=== PATIENT | male | born 1955 | race Caucasian/White ===

== ENCOUNTER 2020-10-01 07:32 | Outpatient (REF) | payer MEDICARE, SELFPAY ==
[2020-10-01 14:23] LABS: Alanine Aminotransferase 28 U/L (0-40); Albumin Level 3.9 g/dL (3.5-5.0); Alkaline Phosphatase 59 U/L (39-117); Anion Gap 13 (12-20); Aspartate Amino Transferase 27 U/L (5-37); Bilirubin Total 0.9 mg/dL (0.0-1.0); Blood Urea Nitrogen 29 mg/dL (9-16); Calcium 9.3 mg/dL (8.4-10.2); Carbon Dioxide 28 mmol/L (22-29); Chloride 105 mmol/L (96-108); Cholesterol 182 mg/dL; Estimated Glomerular Filt Rate > 60; Glucose Fasting 97 mg/dL (60-99); HDL Cholesterol 65 mg/dL; LDL Cholesterol Calculated 106 mg/dl; Potassium 4.6 mmol/L (3.3-5.1); Sodium 141 mmol/L (135-145); Total Protein 6.6 g/dL (6.5-8.0); Triglycerides 58 mg/dL
[2020-10-01 14:47] LABS: Ferritin 148 ng/mL (20-250); TSH reflex Free T4 1.58 uIU/mL (0.32-4.0)
== END 2020-10-01 07:33 | disposition home or self-care (01) ==
LOC: HO.HMGCLDS 07:32
PROVIDERS: PCP Internal Medicine; Visit Provider Internal Medicine
DX: E61.1 Iron deficiency (principal); I10 Essential (primary) hypertension; Z76.89 Persons encountering health services in other specified circumstances
CPT/HCPCS: 36415; 80053; 80061; 82728; 84443

== ENCOUNTER 2021-02-16 07:22 | Outpatient (REF) | payer MEDICARE, SELFPAY ==
[2021-02-16 11:15] LABS: MANUAL DIFF FLAG NO
[2021-02-16 11:25] LABS: Basophils Percent Auto 0.6 % (0-2); Eosinophils Absolute Auto 0.3 X10*3/uL (0.0-0.4); Eosinophils Percent Auto 5.5 % (0-4); Hematocrit 38.8 % (42-52); Hemoglobin 13.4 g/dl (14.0-18.0); Imm Gran Abs Auto 0.01 X10*3/uL (0.00-0.03); Imm Gran Pct Auto 0.2 % (0.0-0.4); Lymphocytes Absolute Auto 1.2 X10*3/uL (1.2-4.9); Lymphocytes Percent Auto 24.4 % (20-40); Mean Corpuscular HGB Conc 34.5 g/dl (31.0-36.0); Mean Corpuscular Hemoglobin 32.3 pg (27.0-33.0); Mean Corpuscular Volume 93.5 fL (80-98); Monocytes Absolute Auto 0.6 X10*3/uL (0.1-1.2); Monocytes Percent Auto 12.1 % (2-11); Neutrophils Absolute Auto 2.8 X10*3/uL (2.0-8.3); Neutrophils Percent Auto 57.2 % (45-73); Platelet Count 199 X10*3/uL (160-400); Red Blood Count 4.15 X10*6/uL (4.60-5.80); Red Cell Distribution Width 12.2 % (11.0-16.0); White Blood Count 4.9 X10*3/uL (4.8-10.8)
[2021-02-16 11:39] LABS: Alanine Aminotransferase 24 U/L (0-40); Albumin Level 4.1 g/dL (3.5-5.0); Alkaline Phosphatase 61 U/L (39-117); Anion Gap 11 (12-20); Aspartate Amino Transferase 28 U/L (5-37); Bilirubin Total 1.6 mg/dL (0.0-1.0); Blood Urea Nitrogen 24 mg/dL (9-16); Calcium 9.4 mg/dL (8.4-10.2); Carbon Dioxide 25 mmol/L (22-29); Chloride 108 mmol/L (96-108); Estimated Glomerular Filt Rate > 60; Glucose Random 80 mg/dL (60-115); Potassium 3.6 mmol/L (3.3-5.1); Sodium 140 mmol/L (135-145); Total Protein 6.7 g/dL (6.5-8.0)
[2021-02-16 12:06] LABS: Ferritin 255 ng/mL (20-250)
== END 2021-02-16 07:23 | disposition home or self-care (01) ==
LOC: HO.HMGCLDS 07:22
PROVIDERS: PCP Internal Medicine; Visit Provider Internal Medicine
DX: I10 Essential (primary) hypertension (principal)
CPT/HCPCS: 36415; 80053; 82728; 85025

== ENCOUNTER 2021-03-14 07:05 | Outpatient (REF) | payer MEDICARE, SELFPAY ==
[2021-03-14 11:48] LABS: MANUAL DIFF FLAG NO
[2021-03-14 11:50] LABS: Basophils Absolute Auto 0.1 X10*3/uL (0.0-0.2); Basophils Percent Auto 0.8 % (0-2); Eosinophils Absolute Auto 0.3 X10*3/uL (0.0-0.4); Eosinophils Percent Auto 5.3 % (0-4); Hematocrit 37.7 % (42.0-52.0); Hemoglobin 12.5 g/dl (14.0-18.0); Imm Gran Abs Auto 0.01 X10*3/uL (0.00-0.03); Imm Gran Pct Auto 0.2 % (0.0-0.4); Lymphocytes Percent Auto 15.5 % (20-40); Mean Corpuscular HGB Conc 33.2 g/dl (31.0-36.0); Mean Corpuscular Hemoglobin 32.4 pg (27.0-33.0); Mean Corpuscular Volume 97.7 fL (80.0-98.0); Mean Platelet Volume 10.1 fL (9.4-12.4); Monocytes Absolute Auto 0.7 X10*3/uL (0.1-1.2); Neutrophils Absolute Auto 4.2 x10*3/uL (2.0-8.3); Neutrophils Percent Auto 67.2 % (45-73); Platelet Count 214 X10*3/uL (160-400); Red Blood Count 3.86 X10*6/uL (4.60-5.80); Red Cell Distribution Width 12.9 % (11.0-16.0); White Blood Count 6.2 X10*3/uL (4.8-10.8)
[2021-03-14 12:15] LABS: Alanine Aminotransferase 31 U/L (0-40); Albumin Level 3.8 g/dL (3.5-5.0); Alkaline Phosphatase 59 U/L (39-117); Anion Gap 10 (12-20); Aspartate Amino Transferase 25 U/L (5-37); Bilirubin Direct 0.3 mg/dL (0.0-0.5); Bilirubin Total 0.7 mg/dL (0.0-1.0); Blood Urea Nitrogen 27 mg/dL (9-16); Carbon Dioxide 27 mmol/L (22-29); Chloride 106 mmol/L (96-108); Estimated Glomerular Filt Rate > 60; Glucose Random 94 mg/dL (60-115); Potassium 3.9 mmol/L (3.3-5.1); Sodium 139 mmol/L (135-145); Total Protein 6.4 g/dL (6.5-8.0)
[2021-03-14 12:35] LABS: Ferritin 106 ng/mL (20-250)
== END 2021-03-14 07:06 | disposition home or self-care (01) ==
LOC: HO.HMGCLDS 07:05
PROVIDERS: PCP Internal Medicine; Visit Provider Internal Medicine
DX: E61.1 Iron deficiency (principal); I10 Essential (primary) hypertension; R79.89 Other specified abnormal findings of blood chemistry
CPT/HCPCS: 36415; 80053; 82248; 82728; 85025

== ENCOUNTER 2021-03-18 15:18 | Outpatient (REF) | payer MEDICARE, SELFPAY | END 2021-03-18 15:19 | disposition home or self-care (01) | LOC: HO.LNP 15:18 | PROVIDERS: Visit Provider Physician Assistant Medical | DX: R35.89 Other polyuria (principal) | CPT/HCPCS: 87086 ==

== ENCOUNTER 2021-03-20 07:53 | Outpatient (REF) | payer MEDICARE, SELFPAY ==
[2021-03-20 11:45] LABS: Alanine Aminotransferase 26 U/L (0-40); Albumin Level 3.8 g/dL (3.5-5.0); Alkaline Phosphatase 65 U/L (39-117); Anion Gap 10 (12-20); Aspartate Amino Transferase 22 U/L (5-37); Bilirubin Total 0.7 mg/dL (0.0-1.0); Blood Urea Nitrogen 24 mg/dL (9-16); Calcium 8.8 mg/dL (8.4-10.2); Carbon Dioxide 25 mmol/L (22-29); Chloride 108 mmol/L (96-108); Estimated Glomerular Filt Rate > 60; Glucose Fasting 95 mg/dL (60-99); Potassium 4.1 mmol/L (3.3-5.1); Sodium 139 mmol/L (135-145); Total Protein 6.4 g/dL (6.5-8.0)
[2021-03-20 12:06] LABS: Ferritin 87 ng/mL (20-250)
[2021-03-20 12:09] LABS: Prostate Specific Antigen 0.37 ng/mL (<0.05-4.0)
== END 2021-03-20 07:54 | disposition home or self-care (01) ==
LOC: HO.HMGCLDS 07:53
PROVIDERS: PCP Internal Medicine; Visit Provider Physician Assistant Medical
DX: R79.89 Other specified abnormal findings of blood chemistry (principal); R35.89 Other polyuria
CPT/HCPCS: 36415; 80053; 82728; 84153

== ENCOUNTER 2021-07-11 10:50 | Outpatient (REF) | payer MEDICARE, SELFPAY ==
[2021-07-11 13:58] LABS: MANUAL DIFF FLAG NO
[2021-07-11 14:01] LABS: Basophils Percent Auto 0.6 % (0-2); Eosinophils Absolute Auto 0.1 X10*3/uL (0.0-0.4); Eosinophils Percent Auto 1.8 % (0-4); Hematocrit 39.1 % (42.0-52.0); Hemoglobin 12.7 g/dl (14.0-18.0); Imm Gran Abs Auto 0.02 X10*3/uL (0.00-0.03); Imm Gran Pct Auto 0.4 % (0.0-0.4); Lymphocytes Absolute Auto 1.2 X10*3/uL (1.2-4.9); Lymphocytes Percent Auto 22.6 % (20-40); Mean Corpuscular HGB Conc 32.5 g/dl (31.0-36.0); Mean Corpuscular Hemoglobin 31.9 pg (27.0-33.0); Mean Corpuscular Volume 98.2 fL (80.0-98.0); Mean Platelet Volume 11.1 fL (9.4-12.4); Monocytes Absolute Auto 0.4 X10*3/uL (0.1-1.2); Monocytes Percent Auto 8.1 % (2-11); Neutrophils Absolute Auto 3.6 x10*3/uL (2.0-8.3); Neutrophils Percent Auto 66.5 % (45-73); Platelet Count 172 X10*3/uL (160-400); Red Blood Count 3.98 X10*6/uL (4.60-5.80); Red Cell Distribution Width 13.1 % (11.0-16.0); White Blood Count 5.4 X10*3/uL (4.8-10.8)
[2021-07-11 14:13] LABS: Alanine Aminotransferase 19 U/L (0-40); Alkaline Phosphatase 54 U/L (39-117); Anion Gap 11 (12-20); Aspartate Amino Transferase 21 U/L (5-37); Blood Urea Nitrogen 25 mg/dL (9-16); Calcium 9.2 mg/dL (8.4-10.2); Carbon Dioxide 25 mmol/L (22-29); Chloride 108 mmol/L (96-108); Estimated Glomerular Filt Rate > 60; Glucose Random 91 mg/dL (60-115); Potassium 4.2 mmol/L (3.3-5.1); Sodium 140 mmol/L (135-145); Total Protein 6.8 g/dL (6.5-8.0)
[2021-07-11 14:34] LABS: Ferritin 128 ng/mL (20-250)
[2021-07-11 14:36] LABS: Appearance Urine CLEAR; Color Urine YELLOW; Glucose Urine UA NEG (NEG); Leukocyte Esterase Urine NEG (NEG); Nitrite Urine NEG (NEG); PH 5.5 (5.0-8.0); Specific Gravity - Urine 1.025 (1.005-1.025); UACC Culture Trigger NO; Urine Blood 2+ (NEG); Urine Ketones NEG (NEG); Urine Protein 1+ MG/DL (NEG-TRACE)
[2021-07-11 14:56] LABS: WBC Urine 0-2 /HPF (0-4)
== END 2021-07-11 10:51 | disposition home or self-care (01) ==
LOC: HO.HMGCLDS 10:50
PROVIDERS: Visit Provider Internal Medicine
DX: I10 Essential (primary) hypertension (principal); M25.473 Effusion, unspecified ankle; R35.89 Other polyuria; D64.9 Anemia, unspecified
CPT/HCPCS: 36415; 80053; 81001; 81003; 82728; 85025

== ENCOUNTER 2022-01-13 12:13 | Outpatient (REF) | payer MEDICARE, SELFPAY ==
[2022-01-13 12:39] LABS: Binax Internal Control QC Valid; Binax Now Covid-19 Ag Negative (Negative)
== END 2022-01-13 12:14 | disposition home or self-care (01) ==
LOC: HO.HMGCLDS 12:13
PROVIDERS: Visit Provider Physician Assistant Medical
DX: Z20.822 Contact with and (suspected) exposure to COVID-19 (principal)
CPT/HCPCS: 87811; C9803

== ENCOUNTER 2022-05-18 10:44 | Outpatient (REF) | payer MEDICARE, SELFPAY ==
[2022-05-18 14:15] LABS: MANUAL DIFF FLAG NO
[2022-05-18 14:25] LABS: Basophils Absolute Auto 0.1 X10*3/uL (0.0-0.2); Basophils Percent Auto 1.1 % (0-2); Eosinophils Absolute Auto 0.2 X10*3/uL (0.0-0.4); Eosinophils Percent Auto 4.2 % (0-4); Hematocrit 38.2 % (42.0-52.0); Hemoglobin 12.8 g/dl (14.0-18.0); Imm Gran Abs Auto 0.01 X10*3/uL (0.00-0.03); Imm Gran Pct Auto 0.2 % (0.0-0.4); Lymphocytes Absolute Auto 0.9 X10*3/uL (1.2-4.9); Lymphocytes Percent Auto 19.6 % (20-40); Mean Corpuscular HGB Conc 33.5 g/dl (31.0-36.0); Mean Corpuscular Hemoglobin 32.2 pg (27.0-33.0); Mean Corpuscular Volume 96.2 fL (80.0-98.0); Mean Platelet Volume 10.4 fL (9.4-12.4); Monocytes Absolute Auto 0.7 X10*3/uL (0.1-1.2); Monocytes Percent Auto 14.7 % (2-11); Neutrophils Absolute Auto 2.7 x10*3/uL (2.0-8.3); Neutrophils Percent Auto 60.2 % (45-73); Platelet Count 211 X10*3/uL (160-400); Red Blood Count 3.97 X10*6/uL (4.60-5.80); Red Cell Distribution Width 12.6 % (11.0-16.0); White Blood Count 4.5 X10*3/uL (4.8-10.8)
[2022-05-18 14:44] LABS: Alanine Aminotransferase 28 U/L (0-40); Alkaline Phosphatase 44 U/L (39-117); Anion Gap 12 (12-20); Aspartate Amino Transferase 31 U/L (5-37); Bilirubin Total 1.4 mg/dL (0.0-1.0); Blood Urea Nitrogen 26 mg/dL (9-16); Calcium 9.3 mg/dL (8.4-10.2); Carbon Dioxide 24 mmol/L (22-29); Chloride 106 mmol/L (96-108); Estimated Glomerular Filt Rate > 60; Glucose Random 83 mg/dL (60-115); Potassium 4.1 mmol/L (3.3-5.1); Sodium 138 mmol/L (135-145); Total Protein 6.6 g/dL (6.5-8.0)
[2022-05-18 14:59] LABS: Ferritin 205 ng/mL (20-250); TSH reflex Free T4 2.36 uIU/mL (0.32-4.0)
[2022-05-19 08:43] LABS: LDL Cholesterol Direct 105 mg/dL (<100)
== END 2022-05-18 10:45 | disposition home or self-care (01) ==
LOC: HO.HMGCLDS 10:44
PROVIDERS: PCP Internal Medicine; Visit Provider Internal Medicine
DX: I10 Essential (primary) hypertension (principal); J30.9 Allergic rhinitis, unspecified; E61.1 Iron deficiency
CPT/HCPCS: 36415; 80053; 82728; 83721; 84443; 85025

== ENCOUNTER → 2022-10-02 09:59 | Outpatient (BNVA) | payer MEDICARE, SELFPAY | PROVIDERS: PCP Internal Medicine; Visit Provider Nurse Practitioner Family | DX: G47.33 Obstructive sleep apnea (adult) (pediatric) (principal); G47.9 Sleep disorder, unspecified; Z99.89 Dependence on other enabling machines and devices | CPT/HCPCS: 99202 ==

== ENCOUNTER → 2022-11-14 11:13 | Outpatient (REF) | payer MEDICARE, SELFPAY | LOC: HO.SL 11:13 | PROVIDERS: Visit Provider Nurse Practitioner Family | DX: G47.30 Sleep apnea, unspecified (principal) | CPT/HCPCS: 95806 ==

== ENCOUNTER → 2022-11-14 11:36 | Outpatient (BNV) | payer MEDICARE, SELFPAY | PROVIDERS: Visit Provider Psychiatry & Neurology Neurology | DX: G47.33 Obstructive sleep apnea (adult) (pediatric) (principal) | CPT/HCPCS: 95806 ==

== ENCOUNTER 2022-11-20 15:24 | Outpatient (AMB) | payer MEDICARE, SELFPAY ==
[2022-11-20 15:33] VITALS: BP 120/60; PULSE 62; O2SAT 95; BMI 30.1
--- NOTE | 2022-11-20 15:33 | MHC.PC.OV ---
Vital Signs 11/20/22 15:33 Height 5 ft 7 in Weight 192 lb 4 oz BMI 30.1 BP 120/60 Blood Pressure Location Lt brachial Position Sitting Pulse 62 Pulse Source Pulse Oximeter Pulse Oximetry (%) 95 Oxygen Delivery Method Room Air Intake Visit Reasons: Pre op~ 4 month follow up HTN Allergies lithium [LITHIUM] Allergy (Unknown, Verified 11/20/22 15:36) UNKNOWN chlorpromazine [From THORAZINE] Adverse Reaction (Severe, Verified 11/20/22 15:36) PARALYSIS Medication List - Last Reconciled 11/20/22 by Dorothy Phillips MD atenolol 25 mg PO DAILY 90 days fluticasone propionate 50 mcg/actuation 1 spray intranasal DAILY 30 days Tobacco use date assessed: 11/20/22 Fall risk assessment: No Falls in past year Last assessed Fall Risk: 11/20/22 Dental Screening Dental Screen Date: 11/20/22 Did you have a dental visit in the last 12 months?: No Did you have a dental problem in the last 6 months where you did not have access to dental care?: No Was dental information given to patient?: No HPI Pre op~ 4 month follow up HTN HPI Details Patient came in today preop evaluation for cataract surgery right [facility] He is due for labs order placed EKG shows sinus ready at 49 beats per minute, right bundle branch block and possible septal infarct He has never seen student development specialist before He is asymptomatic there is no shortness of breath no chest pain however patient need to be evaluated by Cardiology. Since this is an elective procedure it will be reasonable to postpone it until he is seen by the Cardiology. [facility] Medical History Hypertension Surgical History H/O colonoscopy History of hernia surgery Family History Other Mental health disorder Substance use disorder Social History Housing: Apartment Alcohol intake: current Alcohol intake frequency: holidays/special occasions only Patient Tobacco Use Status: Former Tobacco user Tobacco use type: Cigarette e-Cigarette/Vaping Use: Never Used service: No Current occupational status: unemployed Cognitive needs: No Hearing needs: No Vision needs: Yes Questionnaire PHQ-9 Over the last 2 weeks, how often have you been bothered by any of the following problems? 1. Little interest or pleasure in doing things: not at all 2. Feeling down, depressed, or hopeless: not at all 3. Trouble falling or staying asleep, or sleeping too much: not at all 4. Feeling tired or having little energy: not at all 5. Poor appetite or overeating: not at all 6. Feeling bad about yourself - or that you are a failure or have let yourself or your family down: not at all 7. Trouble concentrating on things, such as reading the newspaper or watching television: not at all 9. Thoughts that you would be better off or of hurting yourself in some way: not at all Depression Screening Interpretation: Negative Source: Developed by Drs. Duc Zepeda, Nina Oakley, Deandre Brooks and colleagues, with an educational daryl from [employer]. Thrive Questionnaire Date Thrive assessed: 04/07/21 PERI-7 AMB Questionnaire PERI-7 Date PERI - 7 assessed: 11/21/21 Feeling nervous, anxious, or on edge: 0 = Not at all Not being able to stop or control worryin = Not at all Worrying too much about different things: 0 = Not at all Trouble relaxin = Not at all Being so restless that it is hard to sit still: 0 = Not at all Becoming easily annoyed or irritable: 0 = Not at all Feeling afraid as if something awful might happen: 0 = Not at all Total PERI-7 score (0-4 normal; 5-9 mild; 10-14 moderate; 15-21 severe): 0 Source: Developed by Drs. Duc Zepeda, Nina Oakley, Deandre Brooks and colleagues, with an educational daryl from [employer]. PERI-7 Assessment Billing PERI-7 Assessment Tool: PERI-7 Assessment 10430 Review of Systems Const Denies chills and Denies fever(s) ENT Denies epistaxis and Denies nasal discharge Card Denies chest pain Resp Denies chest congestion, Denies cough and Denies hemoptysis GI Denies diarrhea and Denies nausea Skin/Breast Denies rash Neuro Reports no additional complaints Psych Reports no additional complaints Endo Reports no additional complaints Physical exam (Primary Care) Vital Signs: Last Vital Signs Pulse 62 11/20/22 15:33 BP 120/60 11/20/22 15:33 Pulse Ox 95 11/20/22 15:33 Oxygen Delivery Method Room Air 11/20/22 15:33 BMI result Body Mass Index 30.1 Tobacco/Smoking Status: Tobacco use Status Tobacco use date assessed 11/20/22 11/20/22 15:39 Patient Tobacco Use Status Former Tobacco user 11/20/22 15:35 Tobacco use type Cigarette 11/20/22 15:35 e-Cigarette/Vaping Use Never Used 11/20/22 15:35 Depression Screening Interpretation: Negative Thrive Assessment: Date of Thrive Assessment Date Thrive assessed 04/07/21 11/20/22 15:35 Const General: cooperative, comfortable and no acute distress Orientation/consciousness: patient oriented x3 HENMT Head: Yes normocephalic Eyes General: appearance normal, both eyes and all related structures Neck Neck: Yes supple Resp Effort & Inspection: normal respiratory effort, no cough and no stridor Cardio Other: Rhythm: regular rhythm Heart sounds: S1 normal heart sound present and S2 normal heart sound present Skin General skin exam: turgor normal Neuro General: patient oriented x3, tone normal and moves all extremities Extrem Right lower extremity: no edema Left lower extremity: no edema Office Procedures EKG [id number]-[id number], Complete Assessment and Plan Assessment & Plan (1) Abnormal EKG: Code(s): R94.31 - Abnormal electrocardiogram [ECG] [EKG] (2) Pre-op evaluation: Code(s): Z01.818 - Encounter for other preprocedural examination (3) Hypertension, essential: Code(s): I10 - Essential (primary) hypertension (4) Iron deficiency: Code(s): E61.1 - Iron deficiency Plan Patient came in today preop evaluation for cataract surgery right eye [facility] of [facility] He is due for labs order placed EKG shows sinus ready at 49 beats per minute, right bundle branch block and possible septal infarct He has never seen student development specialist before He is asymptomatic there is no shortness of breath no chest pain however patient need to be evaluated by Cardiology. Since this is an elective procedure it will be reasonable to postpone it until he is seen by the Cardiology. Orders: Orders Comprehensive [place]. Panel Fast Today E61.1 - Iron deficiency, I10 - Essential (primary) hypertension, R94.31 - Abnormal electrocardiogram [ECG] [EKG], Z01.818 - Encounter for other preprocedural examination Lipid Panel Today E61.1 - Iron deficiency, I10 - Essential (primary) hypertension, R94.31 - Abnormal electrocardiogram [ECG] [EKG], Z01.818 - Encounter for other preprocedural examination Complete Blood Count Auto Diff Today E61.1 - Iron deficiency, I10 - Essential (primary) hypertension, R94.31 - Abnormal electrocardiogram [ECG] [EKG], Z01.818 - Encounter for other preprocedural examination Ferritin Today E61.1 - Iron deficiency AMB EKG-In Office Today Z13.6 - Encounter for screening for cardiovascular disorders Referrals Cardiology Referral R94.31 - Abnormal electrocardiogram [ECG] [EKG], Z01.818 - Encounter for other preprocedural examination Coding Level of Care Code Est Pt Level 4 (80834) Diagnoses Abnormal EKG R94.31 Pre-op evaluation Z01.818 Hypertension, essential I10 Iron deficiency E61.1 CPT Codes EKG - CPT: 96039-[id number], Complete ([id number]) Additional Codes PERI-7 Assessment Billing - PERI-7 Assessment Tool: PERI-7 Assessment 30502 ([id number])
== END 2022-11-21 09:12 | disposition home or self-care (01) ==
LOC: HO.HMGC 15:24
PROVIDERS: PCP Internal Medicine; Visit Provider Internal Medicine
DX: R94.31 Abnormal electrocardiogram [ECG] [EKG] (principal); Z01.818 Encounter for other preprocedural examination; I10 Essential (primary) hypertension; E61.1 Iron deficiency
CPT/HCPCS: 93000; 99214

== ENCOUNTER 2022-11-21 07:22 | Outpatient (REF) | payer MEDICARE, SELFPAY ==
[2022-11-21 11:10] LABS: MANUAL DIFF FLAG NO
[2022-11-21 11:37] LABS: Basophils Absolute Auto 0.1 X10*3/uL (0.0-0.2); Basophils Percent Auto 1.1 % (0-2); Eosinophils Absolute Auto 0.2 X10*3/uL (0.0-0.4); Eosinophils Percent Auto 4.1 % (0-4); Hematocrit 40.7 % (42.0-52.0); Hemoglobin 13.3 g/dl (14.0-18.0); Imm Gran Abs Auto 0.01 X10*3/uL (0.00-0.03); Imm Gran Pct Auto 0.2 % (0.0-0.4); Lymphocytes Percent Auto 21.5 % (20-40); Mean Corpuscular HGB Conc 32.7 g/dl (31.0-36.0); Mean Corpuscular Hemoglobin 32.4 pg (27.0-33.0); Mean Platelet Volume 10.8 fL (9.4-12.4); Monocytes Absolute Auto 0.5 X10*3/uL (0.1-1.2); Monocytes Percent Auto 11.4 % (2-11); Neutrophils Absolute Auto 2.9 x10*3/uL (2.0-8.3); Neutrophils Percent Auto 61.7 % (45-73); Platelet Count 174 X10*3/uL (160-400); Red Blood Count 4.11 X10*6/uL (4.60-5.80); Red Cell Distribution Width 12.6 % (11.0-16.0); White Blood Count 4.7 X10*3/uL (4.8-10.8)
[2022-11-21 12:08] LABS: Alanine Aminotransferase 19 U/L (0-40); Albumin Level 3.9 g/dL (3.5-5.0); Alkaline Phosphatase 49 U/L (39-117); Anion Gap 8 (12-20); Aspartate Amino Transferase 18 U/L (5-37); Bilirubin Total 1.1 mg/dL (0.0-1.0); Blood Urea Nitrogen 37 mg/dL (9-16); Calcium 9.3 mg/dL (8.4-10.2); Carbon Dioxide 28 mmol/L (22-29); Chloride 107 mmol/L (96-108); Cholesterol 178 mg/dL; Estimated Glomerular Filt Rate 57; Glucose Fasting 96 mg/dL (60-99); HDL Cholesterol 51 mg/dL; LDL Cholesterol Calculated 115 mg/dl; Sodium 139 mmol/L (135-145); Total Protein 6.8 g/dL (6.5-8.0); Triglycerides 61 mg/dL
[2022-11-21 12:19] LABS: Ferritin 135 ng/mL (20-250)
[2022-11-23 03:53] LABS: LDL Cholesterol Direct 114 mg/dL (<100)
== END 2022-11-21 07:23 | disposition home or self-care (01) ==
LOC: HO.HMGCLDS 07:22
PROVIDERS: PCP Internal Medicine; Visit Provider Internal Medicine
DX: Z01.818 Encounter for other preprocedural examination (principal); E61.1 Iron deficiency; I10 Essential (primary) hypertension; R94.31 Abnormal electrocardiogram [ECG] [EKG]
CPT/HCPCS: 36415; 80053; 80061; 82728; 83721; 85025

== ENCOUNTER 2022-12-05 15:42 | Outpatient (AMB) | payer MEDICARE, SELFPAY ==
--- NOTE | 2022-12-05 15:54 | MHC.OFFVIS ---
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 Intake Note: New patient visit with EKG for evaluation of abnormal EKG and preop prior to cataract surgery. Er Registrar Required: No Accompanied by: Self / Same As Patient Allergies lithium [LITHIUM] Allergy (Unknown, Verified 12/05/22 15:57) UNKNOWN chlorpromazine [From THORAZINE] Adverse Reaction (Severe, Verified 12/05/22 15:57) PARALYSIS Medication List - Last Reconciled 12/05/22 by Rex Andrade MD atenolol 25 mg PO DAILY 90 days fluticasone propionate 50 mcg/actuation 1 spray intranasal DAILY 30 days HPI HPI Comments History of Present Illness Details 67-year-old gentleman with manic depressive disorder and hypertension on atenolol 25 mg daily presenting for perioperative cardiovascular risk assessment. He needs cataract surgery. He is unsure whether he is getting surgery or not. His denying any symptoms though in particular no chest pain or shortness of breath. Blood pressure control is good. He is somewhat bradycardic with heart rate of 49 with right bundle-branch block. He has no dizziness or lightheadedness. [facility] Medical History Hypertension Surgical History H/O colonoscopy History of hernia surgery Family History Other Mental health disorder Substance use disorder Social History Housing: Apartment Alcohol intake: current Alcohol intake frequency: holidays/special occasions only Patient Tobacco Use Status: Former Tobacco user Tobacco use type: Cigarette e-Cigarette/Vaping Use: Never Used service: No Current occupational status: unemployed Cognitive needs: No Hearing needs: No Vision needs: Yes Review of Systems Const Denies chills, Denies daytime sleepiness, Denies fatigue, Denies fever(s), Denies frequent falls, Denies night sweats, Denies snoring, Denies weakness, Denies weight gain and Denies weight loss Eyes Denies loss of vision ENT Denies dizziness and Denies hearing loss Card Denies chest pain, Denies chest pain with activity, Denies syncope, Denies rapid heart rate, Denies edema, Denies claudication, Denies leg edema, Denies lightheadedness, Denies palpitations, Denies dyspnea, Denies dyspnea on exertion and Denies orthopnea Resp Denies cough, Denies excessive phlegm production, Denies dyspnea, Denies dyspnea on exertion, Denies snoring and Denies wheezing GI Denies abdominal pain, Denies hematochezia, Denies change in bowel habits, Denies change in stool character, Denies heartburn, Denies nausea and Denies vomiting Denies hematuria, Denies dysuria and Denies urinary frequency Musc Denies arthralgias, Denies muscle weakness, Denies numbness and Denies tingling Skin/Breast Denies nail changes and Denies rash Neuro Denies Abnormal speech present, Denies dizziness, Denies syncope, Denies frequent falls, Denies loss of vision, Denies memory loss, Denies numbness, Denies tingling and Denies weakness Psych Denies depression and Denies memory loss Endo Denies fatigue and Denies palpitations Aller/Immun Denies wheezing Physical Exam Vital Signs: Last Vital Signs Pulse 49 L 12/05/22 15:55 BP 104/78 12/05/22 15:55 BMI result Body Mass Index 29.5 GENERAL APPEARANCE: in no acute distress. NECK: no carotid bruit, no jugular venous distention. SKIN: no suspicious lesions, warm and dry. HEART: no murmurs, regular rate and rhythm. Bradycardic LUNGS: clear to auscultation bilaterally. ABDOMEN: soft, nontender. EXTREMITIES: no edema. PERIPHERAL PULSES: equal. NEUROLOGIC: No gross deficits, AAO X 3 Neuro Speech: No Abnormal speech present Office Procedures EKG Details: Sinus bradycardia, right bundle branch block, QTC 419 milliseconds. [id number], Complete Assessment & Plan Assessment & Plan (1) Pre-op evaluation: Code(s): Z01.818 - Encounter for other preprocedural examination (2) Abnormal EKG: Code(s): R94.31 - Abnormal electrocardiogram [ECG] [EKG] Plan 67-year-old gentleman who is here for perioperative cardiovascular risk assessment for cataract surgery. Cataract surgery is a low risk surgery and he can proceed with surgery. He has right bundle-branch block on his EKG with sinus bradycardia. He is taking atenolol off and on. He is saying he took it today. His heart rate in the office is 50 beats per minute. He is denying any dizziness or lightheadedness. If he is symptomatic in the future then potentially stopping atenolol is a possibility. He should hold the atenolol on the day of surgery. Otherwise he can see us as needed. He is quite unstable from manic-depressive point of view and would benefit from seeing Psychiatry. Thank you for allowing me to participate in the care of your patient. Please feel free to contact me if you have any questions. Coding Level of Care Code New Pt Level 4 (21629) Diagnoses Pre-op evaluation Z01.818 Abnormal EKG R94.31 CPT Codes EKG - CPT: 47017-[id number], Complete ([id number])
[2022-12-05 15:55] VITALS: BP 104/78; PULSE 49; BMI 29.5
== END 2022-12-05 16:18 | disposition home or self-care (01) ==
PROVIDERS: PCP Internal Medicine; Referring Provider Internal Medicine; Visit Provider Internal Medicine Cardiovascular Disease
DX: Z01.818 Encounter for other preprocedural examination (principal); R94.31 Abnormal electrocardiogram [ECG] [EKG]
CPT/HCPCS: 93010; 99204

== ENCOUNTER → 2022-12-05 15:42 | Outpatient (BNVA) | payer MEDICARE, SELFPAY | PROVIDERS: PCP Internal Medicine; Referring Provider Internal Medicine; Visit Provider Internal Medicine Cardiovascular Disease | DX: Z01.818 Encounter for other preprocedural examination (principal); H26.9 Unspecified cataract; R94.31 Abnormal electrocardiogram [ECG] [EKG] | CPT/HCPCS: 93005; 99202 ==

== ENCOUNTER 2023-05-11 07:31 | Outpatient (REF) | payer MEDICARE, SELFPAY ==
[2023-05-11 11:13] LABS: MANUAL DIFF FLAG NO
[2023-05-11 11:15] LABS: Basophils Percent Auto 0.6 % (0-2); Eosinophils Absolute Auto 0.2 X10*3/uL (0.0-0.4); Eosinophils Percent Auto 4.4 % (0-4); Hematocrit 40.4 % (42.0-52.0); Hemoglobin 13.2 g/dl (14.0-18.0); Imm Gran Abs Auto 0.01 X10*3/uL (0.00-0.03); Imm Gran Pct Auto 0.2 % (0.0-0.4); Mean Corpuscular HGB Conc 32.7 g/dl (31.0-36.0); Mean Corpuscular Hemoglobin 32.4 pg (27.0-33.0); Mean Platelet Volume 10.4 fL (9.4-12.4); Monocytes Absolute Auto 0.6 X10*3/uL (0.1-1.2); Monocytes Percent Auto 11.6 % (2-11); Neutrophils Absolute Auto 3.6 x10*3/uL (2.0-8.3); Neutrophils Percent Auto 65.2 % (45-73); Platelet Count 190 X10*3/uL (160-400); Red Blood Count 4.08 X10*6/uL (4.60-5.80); Red Cell Distribution Width 12.7 % (11.0-16.0); White Blood Count 5.4 X10*3/uL (4.8-10.8)
[2023-05-11 11:21] LABS: Appearance Urine Clear; Color Urine Yellow; Glucose Urine UA Negative (Negative); Leukocyte Esterase Urine Negative (Negative); Nitrite Urine Negative (Negative); UMIC TRIGGER UACC YES; Urine Blood Large (3+) (Negative); Urine Ketones Negative (Negative); Urine Protein 100 (2+) mg/dL (Neg-Trace)
[2023-05-11 11:29] LABS: Bacteria Urine None Seen (None Seen); Hyaline Casts Urine 0-2 /LPF (0-2); RBC Urine >20 /HPF (0-2); Squamous Epithelial Cell Urine 0-2 /HPF (0-2); WBC Urine 0-5 /HPF (0-5)
[2023-05-11 11:30] LABS: Alanine Aminotransferase 19 U/L (0-40); Albumin Level 4.1 g/dL (3.5-5.0); Alkaline Phosphatase 50 U/L (39-117); Anion Gap 11 (12-20); Aspartate Amino Transferase 21 U/L (5-37); Bilirubin Total 0.7 mg/dL (0.0-1.0); Blood Urea Nitrogen 32 mg/dL (9-16); Calcium 9.6 mg/dL (8.4-10.2); Carbon Dioxide 27 mmol/L (22-29); Chloride 106 mmol/L (96-108); Estimated Glomerular Filt Rate 49; Glucose Random 85 mg/dL (60-115); Potassium 4.2 mmol/L (3.3-5.1); Sodium 140 mmol/L (135-145); Total Protein 7.1 g/dL (6.5-8.0)
[2023-05-11 11:50] LABS: Ferritin 151 ng/mL (20-250)
== END 2023-05-11 07:32 | disposition home or self-care (01) ==
LOC: HO.HMGCLDS 07:31
PROVIDERS: PCP Internal Medicine; Visit Provider Internal Medicine
DX: I10 Essential (primary) hypertension (principal); E61.1 Iron deficiency; R31.9 Hematuria, unspecified
CPT/HCPCS: 36415; 80053; 81001; 82728; 85025

== ENCOUNTER 2023-07-16 14:42 | Outpatient (REF) | payer MEDICARE, SELFPAY ==
[2023-07-16 16:24] LABS: Appearance Urine Clear; Color Urine Yellow; Glucose Urine UA Negative (Negative); Leukocyte Esterase Urine Trace (Negative); Nitrite Urine Negative (Negative); PH 5.5 (5.0-9.0); Specific Gravity - Urine 1.015 (1.005-1.025); UMIC TRIGGER UACC YES; Urine Blood Large (3+) (Negative); Urine Ketones Negative (Negative); Urine Protein 100 (2+) mg/dL (Neg-Trace)
[2023-07-16 16:27] LABS: Bacteria Urine None Seen (None Seen); Hyaline Casts Urine 0-2 /LPF (0-2); RBC Urine >20 /HPF (0-2); Squamous Epithelial Cell Urine 0-2 /HPF (0-2); WBC Urine 0-5 /HPF (0-5)
== END 2023-07-16 14:43 | disposition home or self-care (01) ==
LOC: HO.HMGCLDS 14:42
PROVIDERS: PCP Internal Medicine; Visit Provider Internal Medicine
DX: R31.9 Hematuria, unspecified (principal)
CPT/HCPCS: 81001

== ENCOUNTER 2023-08-07 13:00 | Outpatient (AMB) | payer MEDICARE, SELFPAY ==
[2023-08-07 13:07] VITALS: BP 122/78; PULSE 68; O2SAT 97; BMI 31.6
--- NOTE | 2023-08-07 13:07 | MHC.PC.OV ---
Vital Signs 08/07/23 13:07 Height 5 ft 7 in Weight 202 lb BMI 31.6 BP 122/78 Blood Pressure Location Lt brachial Position Sitting Pulse 68 Pulse Source Pulse Oximeter Pulse Oximetry (%) 97 Oxygen Delivery Method Room Air Intake Visit Reasons: BP followup, missed appt last week Intake Note: Pt is here today for a follo up visit on Bp he stated that his BP this morning was 122/83. Allergies lithium [LITHIUM] Allergy (Unknown, Verified 08/07/23 13:09) UNKNOWN chlorpromazine [From THORAZINE] Adverse Reaction (Severe, Verified 08/07/23 13:09) PARALYSIS Medication List - Last Reconciled 08/07/23 by Dorothy Phillips MD ascorbate calcium (vitamin C) 500 mg PO DAILY atenolol 25 mg PO DAILY 90 days diphenhydramine HCl (Allergy Relief (diphenhydramine)) 25 mg PO BEDTIME PRN fluticasone propionate 50 mcg/actuation 1 spray intranasal DAILY 30 days [id number] mcg (Centrum Minis Adults 50 Plus) tabs PO quetiapine 25 mg PO BEDTIME Tobacco use date assessed: 08/07/23 Fall risk assessment: No Falls in past year Last assessed Fall Risk: 08/07/23 Dental Screening Dental Screen Date: 08/07/23 Did you have a dental visit in the last 12 months?: Yes Did you have a dental problem in the last 6 months where you did not have access to dental care?: No Was dental information given to patient?: Patient has dentist HPI BP followup, missed appt last week HPI Details Patient is 68-year-old gentleman came in today have his blood pressure checked Patient is taking atenolol, but there is some confusion about the dose, we have 25 mg but patient was insisting that he was taking 50 mg Brought 1 tablet and not the bottle. I can not tell if it is 25 mg tablet or a 50 mg tablet Patient says that he will bring in bottle later today He is also due for labs Blood pressure is controlled at 122/78 [facility] Medical History Hypertension Surgical History History of hernia surgery H/O colonoscopy Family History Other Mental health disorder Substance use disorder Social History Housing: Apartment Alcohol intake: current Alcohol intake frequency: holidays/special occasions only Patient Tobacco Use Status: Former Tobacco user Tobacco use type: Cigarette e-Cigarette/Vaping Use: Never Used service: No Current occupational status: unemployed Cognitive needs: No Hearing needs: No Vision needs: Yes Questionnaire PHQ-9 Over the last 2 weeks, how often have you been bothered by any of the following problems? 1. Little interest or pleasure in doing things: not at all 2. Feeling down, depressed, or hopeless: not at all 3. Trouble falling or staying asleep, or sleeping too much: not at all 4. Feeling tired or having little energy: not at all 5. Poor appetite or overeating: not at all 6. Feeling bad about yourself - or that you are a failure or have let yourself or your family down: not at all 7. Trouble concentrating on things, such as reading the newspaper or watching television: not at all 9. Thoughts that you would be better off or of hurting yourself in some way: not at all Depression Screening Interpretation: Negative Depression Screening Done: Yes 56523 - PHQ-9 Billing: Yes Source: Developed by Drs. Duc Zepeda, Nina Oakley, Deandre Brooks and colleagues, with an educational daryl from [employer]. Thrive Questionnaire Date Thrive assessed: 08/07/23 I am a: Patient What is your living situation today?: I have a steady place to live Within the past 12 months, did the food you bought not last and you didn't have the money to get more?: Never true Within the past 12 months, did you worry whether your food would run out before you got money to buy more?: Never true Do you have trouble paying for medicines?: No Do you have trouble getting transportation to medical appointments?: No Do you have trouble paying your heating and electricity bill?: No Do you have trouble taking care of your child, family member or friend?: No Do you have trouble with day-to-day activities such as bathing, preparing meals, shopping, managing finances, etc.?: No Are you currently unemployed and looking for a job?: No Are you interested in more education?: No Please select the resources that you would like help with: None THRIVE Score: 0 AUDIT C Alcohol Use Questionnaire (AUDIT-C) 1. How often do you have a drink containing alcohol?: Never 3. How often do you have six or more drinks on one occasion?: Never Total Score: 0 PERI-7 AMB Questionnaire PERI-7 Date PERI - 7 assessed: 08/07/23 Feeling nervous, anxious, or on edge: 0 = Not at all Not being able to stop or control worryin = Not at all Worrying too much about different things: 0 = Not at all Trouble relaxin = Not at all Being so restless that it is hard to sit still: 0 = Not at all Becoming easily annoyed or irritable: 0 = Not at all Feeling afraid as if something awful might happen: 0 = Not at all Total PERI-7 score (0-4 normal; 5-9 mild; 10-14 moderate; 15-21 severe): 0 Source: Developed by Drs. Duc Zepeda, Nina Oakley, Deandre Brooks and colleagues, with an educational darly from [employer]. Review of Systems Const Denies chills and Denies fever(s) ENT Denies epistaxis and Denies nasal discharge Card Denies chest pain Resp Denies chest congestion, Denies cough and Denies hemoptysis GI Denies diarrhea and Denies nausea Skin/Breast Denies rash Neuro Reports no additional complaints Psych Reports no additional complaints Endo Reports no additional complaints Physical exam (Primary Care) Vital Signs: Last Vital Signs Pulse 68 08/07/23 13:07 BP 122/78 08/07/23 13:07 Pulse Ox 97 08/07/23 13:07 Oxygen Delivery Method Room Air 08/07/23 13:07 BMI result Body Mass Index 31.6 Tobacco/Smoking Status: Tobacco use Status Tobacco use date assessed 08/07/23 08/07/23 13:16 Patient Tobacco Use Status Former Tobacco user 08/07/23 13:16 Tobacco use type Cigarette 08/07/23 13:16 e-Cigarette/Vaping Use Never Used 08/07/23 13:16 Depression Screening Interpretation: Negative Thrive Assessment: Date of Thrive Assessment Date Thrive assessed 08/07/23 08/07/23 13:16 Const General: cooperative, comfortable and no acute distress Orientation/consciousness: patient oriented x3 HENMT Head: Yes normocephalic Eyes General: appearance normal, both eyes and all related structures Neck Neck: Yes supple Resp Effort & Inspection: normal respiratory effort, no cough and no stridor Cardio Rhythm: regular rhythm Heart sounds: S1 normal heart sound present and S2 normal heart sound present Skin General skin exam: turgor normal Neuro General: patient oriented x3, tone normal and moves all extremities Extrem Right lower extremity: no edema Left lower extremity: no edema Assessment and Plan Assessment & Plan (1) Nephropathy: Code(s): N28.9 - Disorder of kidney and ureter, unspecified (2) Hypertension, essential: Code(s): I10 - Essential (primary) hypertension (3) LFT elevation: Code(s): R79.89 - Other specified abnormal findings of blood chemistry (4) Elevated ferritin: Code(s): R79.89 - Other specified abnormal findings of blood chemistry (5) Psychiatric illness: Code(s): F99 - Mental disorder, not otherwise specified Plan Patient is 68-year-old gentleman came in today have his blood pressure checked , patient also have nephropathy and blood in his urine Patient is taking atenolol, but there is some confusion about the dose, we have 25 mg but patient was insisting that he was taking 50 mg Brought 1 tablet and not the bottle. I can not tell if it is 25 mg tablet or a 50 mg tablet Patient says that he will bring in bottle later today Referral to Urology was placed but patient says that he is not worried about it he has not sure if he is going to show up for the appointment or not Psychiatric care is through Psychiatry He is also due for labs Blood pressure is controlled at 122/78 Orders: Orders Complete Blood Count Auto Diff Today I10 - Essential (primary) hypertension, N28.9 - Disorder of kidney and ureter, unspecified, R79.89 - Other specified abnormal findings of blood chemistry Comprehensive Met. Panel Today I10 - Essential (primary) hypertension, N28.9 - Disorder of kidney and ureter, unspecified, R79.89 - Other specified abnormal findings of blood chemistry Ferritin Today R79.89 - Other specified abnormal findings of blood chemistry Coding Level of Care Code Est Pt Level 4 (69668) Diagnoses Nephropathy N28.9 Hypertension, essential I10 LFT elevation R79.89 Elevated ferritin R79.89 Psychiatric illness F99
== END 2023-08-07 13:41 | disposition home or self-care (01) ==
PROVIDERS: PCP Internal Medicine; Visit Provider Internal Medicine
DX: N28.9 Disorder of kidney and ureter, unspecified (principal); I10 Essential (primary) hypertension; R79.89 Other specified abnormal findings of blood chemistry; F99 Mental disorder, not otherwise specified
CPT/HCPCS: 99214

== ENCOUNTER 2023-08-07 14:53 | Outpatient (REF) | payer MEDICARE, SELFPAY ==
[2023-08-07 16:13] LABS: MANUAL DIFF FLAG NO
[2023-08-07 16:24] LABS: Basophils Percent Auto 0.7 % (0-2); Eosinophils Absolute Auto 0.2 X10*3/uL (0.0-0.4); Eosinophils Percent Auto 2.9 % (0-4); Hematocrit 39.1 % (42.0-52.0); Hemoglobin 12.9 g/dl (14.0-18.0); Imm Gran Abs Auto 0.01 X10*3/uL (0.00-0.03); Imm Gran Pct Auto 0.2 % (0.0-0.4); Lymphocytes Percent Auto 17.2 % (20-40); Mean Corpuscular Hemoglobin 32.1 pg (27.0-33.0); Mean Corpuscular Volume 97.3 fL (80.0-98.0); Mean Platelet Volume 10.4 fL (9.4-12.4); Monocytes Absolute Auto 0.7 X10*3/uL (0.1-1.2); Monocytes Percent Auto 11.8 % (2-11); Neutrophils Absolute Auto 3.7 x10*3/uL (2.0-8.3); Neutrophils Percent Auto 67.2 % (45-73); Platelet Count 188 X10*3/uL (160-400); Red Blood Count 4.02 X10*6/uL (4.60-5.80); Red Cell Distribution Width 12.8 % (11.0-16.0); White Blood Count 5.5 X10*3/uL (4.8-10.8)
[2023-08-07 17:41] LABS: Alanine Aminotransferase 14 U/L (0-40); Albumin Level 4.1 g/dL (3.5-5.0); Alkaline Phosphatase 58 U/L (39-117); Anion Gap 12 (12-20); Aspartate Amino Transferase 17 U/L (5-37); Bilirubin Total 1.1 mg/dL (0.0-1.0); Blood Urea Nitrogen 32 mg/dL (9-16); Carbon Dioxide 27 mmol/L (22-29); Chloride 107 mmol/L (96-108); Estimated Glomerular Filt Rate > 60; Ferritin 165 ng/mL (20-250); Glucose Random 73 mg/dL (60-115); Potassium 4.1 mmol/L (3.3-5.1); Sodium 142 mmol/L (135-145); Total Protein 7.1 g/dL (6.5-8.0)
== END 2023-08-07 14:54 | disposition home or self-care (01) ==
LOC: HO.HMGCLDS 14:53
PROVIDERS: PCP Internal Medicine; Visit Provider Internal Medicine
DX: N28.9 Disorder of kidney and ureter, unspecified (principal); R79.89 Other specified abnormal findings of blood chemistry; I10 Essential (primary) hypertension
CPT/HCPCS: 36415; 80053; 82728; 85025

== ENCOUNTER 2023-09-06 11:23 | Outpatient (AMB) | payer MEDICARE, SELFPAY ==
[2023-09-06 11:37] VITALS: BP 132/82; PULSE 52; O2SAT 97; BMI 31.5
--- NOTE | 2023-09-06 11:37 | A.OFFPC_ITS ---
Vital Signs 09/06/23 11:37 Height 5 ft 7 in Weight 201 lb 6 oz BMI 31.5 BP 132/82 Blood Pressure Location Lt brachial Position Sitting Pulse 52 Pulse Source Pulse Oximeter Pulse Oximetry (%) 97 Oxygen Delivery Method Room Air Intake Visit Reasons: Annual PE Allergies lithium [LITHIUM] Allergy (Unknown, Verified 09/06/23 11:39) UNKNOWN chlorpromazine [From THORAZINE] Adverse Reaction (Severe, Verified 09/06/23 11:39) PARALYSIS Medication List - Last Reconciled 09/06/23 by Dorothy Phillips MD ascorbate calcium (vitamin C) 500 mg PO DAILY atenolol 25 mg PO DAILY 90 days diphenhydramine HCl (Allergy Relief (diphenhydramine)) 25 mg PO BEDTIME PRN fluticasone propionate 50 mcg/actuation 1 spray intranasal DAILY 30 days [id number] 377-10-531-125 mcg (Centrum Minis Adults 50 Plus) tabs PO quetiapine 25 mg PO BEDTIME Tobacco use date assessed: 09/06/23 Fall risk assessment: No Falls in past year Last assessed Fall Risk: 09/06/23 Dental Screening Dental Screen Date: 09/06/23 Did you have a dental visit in the last 12 months?: No Did you have a dental problem in the last 6 months where you did not have access to dental care?: No Was dental information given to patient?: No HPI Annual PE HPI Details 68-year-old gentleman came in today for physical examination Labs done recently reviewed Patient continued to be anemic but hemoglobin is stable and is in 12 range Blood pressure is stable , patient is taking atenolol 25 mg, no side effects Patient is supposed to be on quetiapine 25 mg for psychiatric illness but he is not taking that regularly Medication is spring prescribed by a psychiatrist. Patient says that it makes him very sleepy BMI is elevated need to lose weight Allergic rhinitis stable with Flonase nasal spray Patient says that he has had colonoscopy few years ago however he does not remember when And the report was discussed with his brother. Patient will talk to his brother and will get back to me. PFSH Medical History Hypertension Surgical History History of hernia surgery H/O colonoscopy Family History Other Mental health disorder Substance use disorder Social History Housing: Apartment Alcohol intake: current Alcohol intake frequency: holidays/special occasions only Patient Tobacco Use Status: Former Tobacco user Tobacco use type: Cigarette e-Cigarette/Vaping Use: Never Used service: No Current occupational status: unemployed Cognitive needs: No Hearing needs: No Vision needs: Yes Questionnaire Thrive Questionnaire Date Thrive assessed: 08/07/23 AUDIT C Alcohol Use Questionnaire (AUDIT-C) 1. How often do you have a drink containing alcohol?: Never 3. How often do you have six or more drinks on one occasion?: Never Total Score: 0 Score Reviewed/Action Taken: Yes PERI-7 AMB Questionnaire PERI-7 Date PERI - 7 assessed: 08/07/23 Source: Developed by Drs. Duc Zepeda, Nina Oakley, Deandre Brooks and colleagues, with an educational daryl from [employer]. Review of Systems Const Denies chills, Denies fever(s) and Denies headache(s) Eyes Denies blurry vision ENT Denies headache(s), Denies nasal discharge, Denies nasal obstruction, Denies odynophagia and Denies sinus pain Card Denies chest pain at rest and Denies chest pain with activity Resp Denies cough and Denies hemoptysis GI Denies diarrhea, Denies odynophagia, Denies vomiting and Denies hematemesis Reports as per HPI Musc Denies abnormal gait Skin/Breast Reports as per HPI Neuro Denies Neuro-related abnormal movements, Denies Abnormal speech present, Denies abnormal gait, Denies headache(s) and Denies Sensory deficit (Neuro) Psych Denies mood swings and Denies paranoia Endo Reports as per HPI Gerson/Lymph Reports as per HPI Aller/Immun Reports as per HPI Physical exam (Primary Care) Vital Signs: Last Vital Signs Pulse 52 09/06/23 11:37 BP 132/82 09/06/23 11:37 Pulse Ox 97 09/06/23 11:37 Oxygen Delivery Method Room Air 09/06/23 11:37 BMI result Body Mass Index 31.5 Tobacco/Smoking Status: Tobacco use Status Tobacco use date assessed 09/06/23 09/06/23 11:41 Patient Tobacco Use Status Former Tobacco user 09/06/23 11:41 Tobacco use type Cigarette 09/06/23 11:41 e-Cigarette/Vaping Use Never Used 09/06/23 11:41 Thrive Assessment: Date of Thrive Assessment Date Thrive assessed 08/07/23 09/06/23 11:41 Const General: cooperative, comfortable and no acute distress Orientation/consciousness: patient oriented x3 HENMT Head: Yes normocephalic and Yes atraumatic Eyes General: appearance normal, both eyes and all related structures Pupils: Equal, round and reactive pupils present EOM: EOMs intact bilaterally Neck Neck: Yes supple and No lymphadenopathy Thyroid: Thyroid normal Lymphatic: no lymphadenopathy noted Resp Effort & Inspection: normal respiratory effort and able to speak in complete sentences Auscultation: clear to auscultation bilaterally Cardio Heart sounds: S1 normal heart sound present and S2 normal heart sound present GI Palpation (GI): Soft to palpation and nontender Auscultation: normal bowel sounds General: Yes no CVA tenderness Back/Spine/Pelvis Back: no CVA tenderness Skin General skin exam: elasticity normal and turgor normal Neuro General: patient oriented x3 and gait normal Cranial nerves: Yes Equal, round and reactive pupils present Speech: No Abnormal speech present Sensory Exam: No Sensory deficit (Neuro) Coordination: tandem gait normal and Romberg test negative Extrem General: Yes normal exam except as noted and No edema Assessment and Plan Assessment & Plan (1) Encounter for general adult medical examination with abnormal findings: Code(s): Z00.01 - Encounter for general adult medical examination with abnormal findings (2) Allergic rhinitis: Code(s): J30.9 - Allergic rhinitis, unspecified Qualifiers: Allergic rhinitis trigger: unspecified Allergic rhinitis seasonality: unspecified Qualified Code(s): J30.9 - Allergic rhinitis, unspecified (3) Psychiatric illness: Code(s): F99 - Mental disorder, not otherwise specified (4) Blood in urine: Code(s): R31.9 - Hematuria, unspecified Qualifiers: Hematuria type: other microscopic Qualified Code(s): R31.29 - Other microscopic hematuria (5) Hypertension, essential: Code(s): I10 - Essential (primary) hypertension (6) Obesity due to excess calories: Code(s): E66.09 - Other obesity due to excess calories Qualifiers: Obesity classification: adult class 1 (BMI 30 - 34.9) Serious obesity comorbidity presence: with serious comorbidity Body mass index: BMI 31.0-31.9 Qualified Code(s): E66.09 - Other obesity due to excess calories; Z68.31 - Body mass index [BMI] 31.0-31.9, adult Plan 68-year-old gentleman came in today for physical examination Labs done recently reviewed Patient continued to be anemic but hemoglobin is stable and is in 12 range Blood pressure is stable , patient is taking atenolol 25 mg, no side effects Patient is supposed to be on quetiapine 25 mg for psychiatric illness but he is not taking that regularly Medication is spring prescribed by a psychiatrist. Patient says that it makes him very sleepy BMI is elevated need to lose weight Allergic rhinitis stable with Flonase nasal spray Continued to have little bit of blood in his urine, he has appointment coming up with a urologist next week for evaluation Patient says that he has had colonoscopy few years ago however he does not remember when And the report was discussed with his brother. Patient will talk to his brother and will get back to me. Coding Level of Care Code Est Pt Prev Care >65y(39504) Diagnoses Encounter for general adult medical examination with abnormal findings Z00.01 Allergic rhinitis, unspecified seasonality, unspecified trigger J30.9 Allergic rhinitis trigger: unspecified Allergic rhinitis seasonality: unspecified Psychiatric illness F99 Other microscopic hematuria R31.29 Hematuria type: other microscopic Hypertension, essential I10 Class 1 obesity due to excess calories with serious comorbidity and body mass index (BMI) of 31.0 to 31.9 in adult E66.09; Z68.31 Obesity classification: adult class 1 (BMI 30 - 34.9) Serious obesity comorbidity presence: with serious comorbidity Body mass index: BMI 31.0-31.9
== END 2023-09-06 12:02 | disposition home or self-care (01) ==
PROVIDERS: PCP Internal Medicine; Visit Provider Internal Medicine
DX: Z00.00 Encounter for general adult medical examination without abnormal findings (principal); J30.9 Allergic rhinitis, unspecified; F99 Mental disorder, not otherwise specified; R31.29 Other microscopic hematuria; I10 Essential (primary) hypertension; E66.09 Other obesity due to excess calories; Z68.31 Body mass index [BMI] 31.0-31.9, adult
CPT/HCPCS: 99397

== ENCOUNTER 2023-09-10 10:56 | Outpatient (AMB) | payer MEDICARE, SELFPAY ==
--- NOTE | 2023-09-10 10:56 | A.OFFVIS_ITS ---
Intake Visit Reasons: Hematuria, Intake Note: New Patient presents for initial visit for Hematuria Urology Medications: none Blood Thinner: none Engineering Director Required: No Allergies lithium [LITHIUM] Allergy (Unknown, Verified 09/10/23 11:39) UNKNOWN chlorpromazine [From THORAZINE] Adverse Reaction (Severe, Verified 09/10/23 11:39) PARALYSIS Medication List - Last Reconciled 09/10/23 by HA Pugh-LIS ascorbate calcium (vitamin C) 500 mg PO DAILY atenolol 25 mg PO DAILY 90 days diphenhydramine HCl (Allergy Relief (diphenhydramine)) 25 mg PO BEDTIME PRN fluticasone propionate 50 mcg/actuation 1 spray intranasal DAILY 30 days [id number] 503-32-133-125 mcg (Centrum Minis Adults 50 Plus) tabs PO quetiapine 25 mg PO BEDTIME HPI Comments Details: Duc is a 68 year old patient of Dr. Phillips. He has a PMH of hypertension and bipolar. He present to the office today as a new patient for microscopic hematuria. In discussion with the patient today he reports a reports a longstanding history of microscopic hematuria. He reports having followed up previously with a urologist here in this building however is unsure how long ago this was or exactly what was done for this issue. When asked he currently denies any bothersome urinary issues or concerns. In office urinalysis results reviewed with the patient today 3+ microscopic hematuria noted. When asked he does report a 25 year history of smoking from [id number]. He reports having smoked approximately 15 cigarettes per day when he was smoking. He otherwise denies any workplace chemical exposure. Discussed at length potential causes of microscopic hematuria. I discussed reasons for blood in the urine may include but are not limited to kidney stones, cancer in the urinary tract, BPH, kidney stone disease or inflammatory conditions of the urinary tract. I have discussed workup to include cystoscopy evaluation however patient declines in office cystoscopy however will undergo CT urogram and urine cytology for further assessment evaluation. He denies urinary urgency, urinary frequency, incontinence, nocturia, dysuria, foul smelling urine, changes to urinary stream, flank pain, fever, and or chills. He is happy with his current voiding parameters. He otherwise offers no other issues or concerns. [facility] Medical History Hypertension Surgical History History of hernia surgery H/O colonoscopy Family History Other Mental health disorder Substance use disorder Social History Housing: Apartment Alcohol intake: current Alcohol intake frequency: holidays/special occasions only Patient Tobacco Use Status: Former Tobacco user Tobacco use type: Cigarette e-Cigarette/Vaping Use: Never Used service: No Current occupational status: unemployed Cognitive needs: No Hearing needs: No Vision needs: Yes Review of Systems Const All systems reviewed & are unremarkable except as noted in HPI and below Physical Exam Const General: cooperative, comfortable, no acute distress, well developed, alert and awake Nutritional Appearance: overweight Orientation/consciousness: patient oriented x3 Limitations: no limitations HEENT Head: Yes normal to inspection, Yes normocephalic and Yes atraumatic Ears: hearing grossly normal bilaterally Eyes General: appearance normal, both eyes and all related structures Neck Neck: Yes normal visual inspection and Yes trachea midline Chest Chest palpation & inspection: normal inspection of the chest Resp Effort & Inspection: normal respiratory effort and able to speak in complete sentences Cardio Rate: regular rate GI Inspection: Yes normal to inspection General: Yes no CVA tenderness Back/Spine/Pelvis Back: no CVA tenderness Skin General skin exam: no rashes or lesions noted Neuro General: patient oriented x3 Extrem General: Yes normal to inspection Psych Appearance: grossly normal and well kempt Mental Status: mental status grossly normal Speech and movement: Normal speech and movement present and Clear speech present Affect: normal affect Attitude: cooperative Thought process: Flight of ideas present and Other thought process findings present Thought content: Normal thought content present Insight: Fair insight present (Psych) Judgement: Fair judgement present (Psych) Results AMB Urinalysis, Automated UA Leukoctes 0 Kaylee/uL Last Edit by Maggie Ayoub on 09/10/23 11:36 UA Nitrite Negative Last Edit by Maggie Ayoub on 09/10/23 11:36 UA Urobilinogen 0.2 mg/dL Last Edit by Maggie Ayoub on 09/10/23 11:36 UA Protein 30 mg/dL Last Edit by Maggie Ayoub on 09/10/23 11:36 UA pH 6.0 Last Edit by Maggie Ayoub on 09/10/23 11:36 UA Blood 200 Sudarshan/uL Last Edit by Maggie Ayoub on 09/10/23 11:36 UA Specific [place] 1.015 Last Edit by Maggie Ayoub on 09/10/23 11:36 UA Ketone Negative Last Edit by Maggie Ayoub on 09/10/23 11:36 UA Bilirubin 0 mg/dL Last Edit by Maggie Ayoub on 09/10/23 11:36 UA Glucose 0 mg/dL Last Edit by Maggie Ayoub on 09/10/23 11:36 Results Reviewed Results Reviewed: Laboratory Last Values Urine pH (Auto) 6.0 09/10/23 11:35 Specific [place] (Auto) 1.015 09/10/23 11:35 Urine Protein (Auto) 30 mg/dL 09/10/23 11:35 Glucose (UA)(Auto) 0 mg/dL 09/10/23 11:35 Urine Ketones (Auto) Negative 09/10/23 11:35 Urine Blood (Auto) 200 Sudarshan/uL 09/10/23 11:35 Urine Nitrite (Auto) Negative 09/10/23 11:35 Urine Bilirubin (Auto) 0 mg/dL 09/10/23 11:35 Urine Urobilinogen (Auto) 0.2 mg/dL 09/10/23 11:35 Leukocyte Esterase (Auto) 0 Kaylee/uL 09/10/23 11:35 Assessment & Plan Assessment & Plan (1) Nicotine dependence: Code(s): F17.200 - Nicotine dependence, unspecified, uncomplicated Category: Medical (2) Microscopic hematuria: Code(s): R31.29 - Other microscopic hematuria Category: Medical Plan In office urinalysis results reviewed with the patient today; as noted above; will send for urine cytology. Discussed at length potential causes of microscopic hematuria. Discussed further workup with CT urogram, urine cytology, and in office cystoscopy discussed risks and benefits of further workup versus surveillance monitoring; this was discussed at length. All questions were answered. Patient currently denies any bothersome urinary issues or concerns. He reports be happy with current voiding parameters. Will obtain CT urogram for further assessment evaluation. BUN and creatinine ordered for imaging. Will obtain PSA for further assessment evaluation. Follow-up in 1-3 months with imaging and labs to be completed prior; or sooner with any issues, concerns, and or questions. Orders: Orders AMB Urinalysis Automated Today Z13.9 - Encounter for screening, unspecified Blood Urea Nitrogen Today F17.200 - Nicotine dependence, unspecified, uncomplicated, R31.29 - Other microscopic hematuria CT urogram Today F17.200 - Nicotine dependence, unspecified, uncomplicated, R31.29 - Other microscopic hematuria Prostate Specific Antigen Today N40.0 - Benign prostatic hyperplasia without lower urinary tract symptoms Creatinine Today F17.200 - Nicotine dependence, unspecified, uncomplicated, R31.29 - Other microscopic hematuria Urine Cytology Today R31.29 - Other microscopic hematuria Patient Instructions: The patient had an opportunity to ask questions regarding the treatment plan. All questions were answered. Physical exam, labs, and imaging were discussed and reviewed in detail. As well as risks, benefits, and discussion of treatment choices. No major barriers to understanding were identified. The patient expressed understanding and agreement with the above treatment plan. The patient was made aware they should contact our office by phone for worsening of their current condition, the appearance of new symptoms, or with any questions or concerns. Compliance is encouraged with any medications and follow up testing that is ordered. It is a privilege to be allowed the opportunity to participate in? your urological care.? Again, if you have any questions or concerns If you have any questions or concerns please do not hesitate to contact me. The office is [phone]. This note is constructed using voice recognition software. While every effort has been made to ensure accuracy goodwill ambassador errors may have been included. Yours sincerely, CHAPARRO Pugh Coding Level of Care Code New Pt Level 3 (43788) Diagnoses Nicotine dependence F17.200 Microscopic hematuria R31.29
== END 2023-09-10 11:55 | disposition home or self-care (01) ==
PROVIDERS: PCP Internal Medicine; Referring Provider Internal Medicine; Visit Provider Nurse Practitioner Family
DX: F17.200 Nicotine dependence, unspecified, uncomplicated (principal); R31.29 Other microscopic hematuria; Z13.9 Encounter for screening, unspecified
CPT/HCPCS: 99203

== ENCOUNTER 2023-09-10 10:56 | Outpatient (REF) | payer MEDICARE, SELFPAY ==
[2023-09-10 17:01] LABS: Urine Cytology See Pathology rpt
== END 2023-09-10 10:57 | disposition home or self-care (01) ==
LOC: HO.LNP 10:56
PROVIDERS: PCP Internal Medicine; Visit Provider Nurse Practitioner Family
DX: R31.29 Other microscopic hematuria (principal); F17.200 Nicotine dependence, unspecified, uncomplicated
CPT/HCPCS: 81003; 88112; 99202

== ENCOUNTER 2023-11-11 09:39 | Outpatient (REF) | payer MEDICARE, SELFPAY ==
--- NOTE | ~2023-11-11 | CT_ITS ---
EXAMINATION: CT ABDOMEN AND PELVIS WITHOUT AND WITH CONTRAST CLINICAL INFORMATION: Hematuria. COMPARISON: Abdomen CT from 01/16/2018 TECHNIQUE: Noncontrast CT of the abdomen and pelvis is performed followed by split bolus contrast-enhanced images using 85 mL Omnipaque 350 contrast.? Postcontrast imaging is performed during the combined nephrogram and excretion phase. Sagittal and coronal reformatted images were obtained on the technologist's workstation for both the precontrast and postcontrast phases. This CT examination was performed using dose optimization techniques as appropriate, variously including the following: *Automated exposure control *Adjustment of mA and/or kV according to patient size (this includes techniques or standardized protocols for targeted exams where dose is matched to indication/reason for exam; i.e. extremities or head) *Use of iterative reconstruction technique DLP: 2371 mGy-cm FINDINGS: LUNG BASES: Peripheral opacities of atelectasis or scarring in each lower lobe. The few clustered nodules in the lateral left lower lobe are likely sequela of prior infection or inflammation of small airways in this region. A nonspecific 0.6 cm nodule in the posteromedial right lower lobe is new compared to 01/16/2018 (image 23, series 6). HEPATOBILIARY: Simple cysts of the liver, largest in the left lobe 2.7 cm AP dimension. Gallbladder has several small calcified stones. No dilated bile ducts. PANCREAS: Mildly atrophied. No edema, pancreatic ductal dilatation or mass. SPLEEN: Normal. ADRENAL GLANDS: Normal. KIDNEYS AND URETERS: Kidneys are normal in size and enhance symmetrically. No nephrolithiasis or hydronephrosis. Simple cysts of both kidneys. No renal imaging follow-up is recommended for simple cysts. There is symmetric excretion of contrast into the nondilated collecting systems. The lack of opacification of a long segment of the right ureter is likely due to peristalsis at the time of imaging. There is no overt urothelial thickening of either ureter. BLADDER: There appears to be a mildly thickened, mildly trabeculated bladder wall. The base of the urinary bladder is mildly compressed by the prostate gland and there appears to be protrusion of the median lobe of the prostate into the bladder trigone. An irregular 2.8 x 2.3 x 2.6 cm urothelial mass of the right posterior bladder wall is adjacent to the ureteral orifice and has mild amount of calcification at its periphery. This mass does not obstruct the ureterovesical junction. BOWEL AND PERITONEUM: Large hiatal hernia contains stomach and a segment of transverse colon. No dilated bowel loops. There is a diverticulum of the distal duodenum. The appendix is normal. Multiple diverticula of the colon without evidence of diverticulitis. No abdominal free fluid or free air. ABDOMINAL WALL: Unremarkable. VASCULATURE: There is extensive atherosclerotic calcification of the abdominal aorta and iliac arteries without aneurysm. Inferior vena cava and renal veins are normal. LYMPH NODES: No pathologic sized lymph nodes in the abdomen or pelvis. No inguinal lymphadenopathy. PELVIC VISCERA: Prostate gland measures approximately 4 x 3 x 4.7 cm. No pelvic free fluid. MUSCULOSKELETAL: No acute or suspicious osseous abnormality. CT/CT urogram IMPRESSION: * 2.8 x 2.2 x 2.6 cm mass of the right posterior bladder wall is consistent with urothelial carcinoma. The lesion does not obstruct the ureter. No pelvic lymphadenopathy. No evidence of metastatic disease in the abdomen or pelvis. * Simple cysts of the liver and kidneys. * A few lung nodules are detected, including 0.6 cm in the posteromedial right lower lobe, probably sequela of remote infection or inflammation involving small airways. However, since nodules are new since 01/16/2018, follow-up is recommended, particularly if the patient is found to have urothelial carcinoma on cystoscopy. * Cholelithiasis without cholecystitis. * Large hiatal hernia contains the stomach and transverse colon.
[2023-11-11] MEDS: iohexoL 350 MG/ML 100 ML INFUS..BTL IV (10:57)
[2023-11-11 13:35] LABS: GFR POC > 60
== END 2023-11-11 09:40 | disposition home or self-care (01) ==
LOC: HO.CT 09:39
PROVIDERS: PCP Internal Medicine; Visit Provider Nurse Practitioner Family
DX: R31.29 Other microscopic hematuria (principal); F17.200 Nicotine dependence, unspecified, uncomplicated
CPT/HCPCS: 74178; 82565; Q9967

== ENCOUNTER 2023-11-13 15:23 | Outpatient (AMB) | payer MEDICARE, SELFPAY ==
--- NOTE | 2023-11-13 15:34 | MHC.OFFVIS ---
Intake Visit Reasons: CT Scan follow up Intake Note: Patient presents for follow up visit on: Hematuria and CT Scan Results Imagin11/11/23 Urology Medications: none Blood Thinner: none Nurse Plastics Required: No Accompanied by: Self / Same As Patient Allergies lithium [LITHIUM] Allergy (Unknown, Verified 11/13/23 16:06) UNKNOWN chlorpromazine [From THORAZINE] Adverse Reaction (Severe, Verified 11/13/23 16:06) PARALYSIS Medication List - Last Reconciled 11/13/23 by CHAPARRO Pugh ascorbate calcium (vitamin C) 500 mg PO DAILY atenolol 25 mg PO DAILY 90 days diphenhydramine HCl (Allergy Relief (diphenhydramine)) 25 mg PO BEDTIME PRN fluticasone propionate 50 mcg/actuation 1 spray intranasal DAILY 30 days [id number] mcg (Centrum Minis Adults 50 Plus) tabs PO quetiapine 25 mg PO BEDTIME HPI Comments Details: Duc is a 68 year old patient of Dr. Phillips. He has a PMH of hypertension and bipolar. He present to the office today for follow-up. Of note, patient was seen as a new patient for microscopic hematuria in the setting of previous nicotine dependence approximately 2 months ago at which time CT urogram and urine cytology were ordered for further assessment evaluation. These results were reviewed with the patient today. 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 The lesion does not obstruct the ureter. No pelvic lymphadenopathy. No evidence of metastatic disease in the abdomen or pelvis. Simple cyst in the liver and kidneys. A few lung nodules are detected, including a 0.6 cm in the posterior medial right lower lobe probable sequela of remote infection or inflammation involving small airways. However since nodules are new since December of 2017 follow-up is recommended partially if the patient is found to have urethral carcinoma on cystoscopy. Previous urine cytology 09/19 results reviewed with the patient today atypical urethral cells noted. Discussed further workup to include in office cystoscopy versus cystoscopy with possible TURBT in OR. Risks and benefits of these interventions were discussed. In discussion with the patient today office visit patient discusses wanting to review plan of care with his daughter however then discusses feeling no treatment is necessary. In office urinalysis results reviewed with the patient today 3+ microscopic hematuria noted. He does report having a longstanding history of nicotine dependence. When asked he does report a 25 year history of smoking from [id number]. He reports having smoked approximately 15 cigarettes per day when he was smoking. He otherwise denies any workplace chemical exposure. I have discussed workup to include cystoscopy evaluation however patient declines in office cystoscopy as well as further interventions at this time. I did discuss at length possible delay in treatment given patient does not wish to undergo further treatment at this time. He is alert and oriented x3 and is able to verbalize understanding of significant consequences given failure to adhere to further treatment options. He otherwise denies urinary urgency, urinary frequency, incontinence, nocturia, dysuria, foul smelling urine, changes to urinary stream, flank pain, fever, and or chills. He is happy with his current voiding parameters. He otherwise offers no other issues or concerns. [facility] Medical History Hypertension Surgical History History of hernia surgery H/O colonoscopy Family History Other Mental health disorder Substance use disorder Social History Housing: Apartment Alcohol intake: current Alcohol intake frequency: holidays/special occasions only Patient Tobacco Use Status: Former Tobacco user Tobacco use type: Cigarette e-Cigarette/Vaping Use: Never Used service: No Current occupational status: unemployed Cognitive needs: No Hearing needs: No Vision needs: Yes Review of Systems Const All systems reviewed & are unremarkable except as noted in HPI and below Physical Exam Const General: cooperative, healthy appearing, comfortable, no acute distress, well developed, alert and awake Nutritional Appearance: overweight Orientation/consciousness: patient oriented x3 Limitations: no limitations HEENT Head: Yes normal to inspection, Yes normocephalic and Yes atraumatic Ears: hearing grossly normal bilaterally Eyes General: appearance normal, both eyes and all related structures Neck Neck: Yes normal visual inspection and Yes trachea midline Chest Chest palpation & inspection: normal inspection of the chest Resp Effort & Inspection: normal respiratory effort and able to speak in complete sentences Cardio Rate: regular rate GI Inspection: Yes normal to inspection General: Yes no CVA tenderness Back/Spine/Pelvis Back: no CVA tenderness Skin General skin exam: no rashes or lesions noted Neuro General: patient oriented x3 Extrem General: Yes normal to inspection Psych Appearance: grossly normal and well kempt Mental Status: mental status grossly normal Speech and movement: Normal speech and movement present and Clear speech present Affect: normal affect Attitude: cooperative Thought process: Flight of ideas present and Other thought process findings present Thought content: Normal thought content present Insight: Fair insight present (Psych) Judgement: Fair judgement present (Psych) Results AMB Urinalysis, Automated UA Leukoctes 0 Kaylee/uL Last Edit by Macrotek on 11/13/23 15:58 UA Nitrite Negative Last Edit by Macrotek on 11/13/23 15:58 UA Urobilinogen 0.2 mg/dL Last Edit by Macrotek on 11/13/23 15:58 UA Protein 30 mg/dL Last Edit by Macrotek on 11/13/23 15:58 UA pH 6.0 Last Edit by Macrotek on 11/13/23 15:58 UA Blood 200 Sudarshan/uL Last Edit by Macrotek on 11/13/23 15:58 UA Specific [place] 1.015 Last Edit by Macrotek on 11/13/23 15:58 UA Ketone Negative Last Edit by Macrotek on 11/13/23 15:58 UA Bilirubin 0 mg/dL Last Edit by Macrotek on 11/13/23 15:58 UA Glucose 0 mg/dL Last Edit by Macrotek on 11/13/23 15:58 Results Reviewed Results Reviewed: Laboratory Last Values Urine pH (Auto) 6.0 11/13/23 15:55 Specific [place] (Auto) 1.015 11/13/23 15:55 Urine Protein (Auto) 30 mg/dL 11/13/23 15:55 Glucose (UA)(Auto) 0 mg/dL 11/13/23 15:55 Urine Ketones (Auto) Negative 11/13/23 15:55 Urine Blood (Auto) 200 Sudarshan/uL 11/13/23 15:55 Urine Nitrite (Auto) Negative 11/13/23 15:55 Urine Bilirubin (Auto) 0 mg/dL 11/13/23 15:55 Urine Urobilinogen (Auto) 0.2 mg/dL 11/13/23 15:55 Leukocyte Esterase (Auto) 0 Kaylee/uL 11/13/23 15:55 Date of Service: 11/11/23 Procedure(s): CT urogram FINDINGS: LUNG BASES: Peripheral opacities of atelectasis or scarring in each lower lobe. The few clustered nodules in the lateral left lower lobe are likely sequela of prior infection or inflammation of small airways in this region. A nonspecific 0.6 cm nodule in the posteromedial right lower lobe is new compared to 01/16/2018 (image 23, series 6). HEPATOBILIARY: Simple cysts of the liver, largest in the left lobe 2.7 cm AP dimension. Gallbladder has several small calcified stones. No dilated bile ducts. PANCREAS: Mildly atrophied. No edema, pancreatic ductal dilatation or mass. SPLEEN: Normal. ADRENAL GLANDS: Normal. KIDNEYS AND URETERS: Kidneys are normal in size and enhance symmetrically. No nephrolithiasis or hydronephrosis. Simple cysts of both kidneys. No renal imaging follow-up is recommended for simple cysts. There is symmetric excretion of contrast into the nondilated collecting systems. The lack of opacification of a long segment of the right ureter is likely due to peristalsis at the time of imaging. There is no overt urothelial thickening of either ureter. BLADDER: There appears to be a mildly thickened, mildly trabeculated bladder wall. The base of the urinary bladder is mildly compressed by the prostate gland and there appears to be protrusion of the median lobe of the prostate into the bladder trigone. An irregular 2.8 x 2.3 x 2.6 cm urothelial mass of the right posterior bladder wall is adjacent to the ureteral orifice and has mild amount of calcification at its periphery. This mass does not obstruct the ureterovesical junction. BOWEL AND PERITONEUM: Large hiatal hernia contains stomach and a segment of transverse colon. No dilated bowel loops. There is a diverticulum of the distal duodenum. The appendix is normal. Multiple diverticula of the colon without evidence of diverticulitis. No abdominal free fluid or free air. ABDOMINAL WALL: Unremarkable. VASCULATURE: There is extensive atherosclerotic calcification of the abdominal aorta and iliac arteries without aneurysm. Inferior vena cava and renal veins are normal. LYMPH NODES: No pathologic sized lymph nodes in the abdomen or pelvis. No inguinal lymphadenopathy. PELVIC VISCERA: Prostate gland measures approximately 4 x 3 x 4.7 cm. No pelvic free fluid. MUSCULOSKELETAL: No acute or suspicious osseous abnormality. IMPRESSION: * 2.8 x 2.2 x 2.6 cm mass of the right posterior bladder wall is consistent with urothelial carcinoma. The lesion does not obstruct the ureter. No pelvic lymphadenopathy. No evidence of metastatic disease in the abdomen or pelvis. * Simple cysts of the liver and kidneys. * A few lung nodules are detected, including 0.6 cm in the posteromedial right lower lobe, probably sequela of remote infection or inflammation involving small airways. However, since nodules are new since 01/16/2018, follow-up is recommended, particularly if the patient is found to have urothelial carcinoma on cystoscopy. * Cholelithiasis without cholecystitis. * Large hiatal hernia contains the stomach and transverse colon. Assessment & Plan Assessment & Plan (1) Microscopic hematuria: Code(s): R31.29 - Other microscopic hematuria Category: Medical (2) Nicotine dependence: Code(s): F17.200 - Nicotine dependence, unspecified, uncomplicated Category: Medical (3) Abnormal cytology: Code(s): R89.6 - Abnormal cytological findings in specimens from other organs, systems and tissues Category: Medical (4) Bladder mass: Code(s): N32.89 - Other specified disorders of bladder Category: Medical Plan: Risks, benefits and alternatives to therapy were discussed. These include but are not limited to infection, bleeding, damage to local organs and tissues, need for further interventions. ? Anesthetic risks regarding cardiac arrhythmia, blood clots, and potential mortality were discussed. The patient understands the typical recovery time and the outpatient nature of the procedure. After consideration of these risks the patient gives full informed consent and they wish to move ahead with the procedure. Plan In office urinalysis results reviewed with the patient today; as noted above; will send for urine cytology. Previous urine cytology results reviewed with the patient today; as noted above. Recent CT urogram results reviewed with the patient today; as noted above. Discussed at length risks and benefits of cystoscopy with TURBT. Reached out to PCP to further assess patient's mental capacitity Patient is alert and oriented times 3 and is able to verbalize via teach back method of significant consequences with failure to proceed in any further intervention at this time. He is able to verbalize in his own words the further delay could jeopardize his health. He does not wish to continue to follow-up at this time although encouraged to schedule follow-up appointment to discuss plan of care and treatment options after discussion with his family however he adamantly refuses. manager hotel did also reach out to patient please see activity note. Will create patient letter and mail to patient. Office information provided. Orders: Orders AMB Urinalysis Automated 11/13/23 Z13.9 - Encounter for screening, unspecified Urine Cytology 11/13/23 R31.29 - Other microscopic hematuria Patient Instructions: The patient had an opportunity to ask questions regarding the treatment plan. All questions were answered. Physical exam, labs, and imaging were discussed and reviewed in detail. As well as risks, benefits, and discussion of treatment choices. No major barriers to understanding were identified. The patient expressed understanding and agreement with the above treatment plan. The patient was made aware they should contact our office by phone for worsening of their current condition, the appearance of new symptoms, or with any questions or concerns. Compliance is encouraged with any medications and follow up testing that is ordered. It is a privilege to be allowed the opportunity to participate in? your urological care.? Again, if you have any questions or concerns If you have any questions or concerns please do not hesitate to contact me. The office is [phone]. This note is constructed using voice recognition software. While every effort has been made to ensure accuracy fermenting cellars supervisor errors may have been included. Yours sincerely, CHAPARRO Pugh Coding Level of Care Code Est Pt Level 4 (58403) Diagnoses Microscopic hematuria R31.29 Nicotine dependence F17.200 Abnormal cytology R89.6 Bladder mass N32.89
== END 2023-11-13 16:02 | disposition home or self-care (01) ==
PROVIDERS: PCP Internal Medicine; Visit Provider Nurse Practitioner Family
DX: R31.29 Other microscopic hematuria (principal); F17.200 Nicotine dependence, unspecified, uncomplicated; R89.6 Abnormal cytological findings in specimens from other organs, systems and tissues; N32.89 Other specified disorders of bladder
CPT/HCPCS: 99214

== ENCOUNTER 2023-11-13 15:23 | Outpatient (REF) | payer MEDICARE, SELFPAY ==
[2023-11-13 16:56] LABS: Urine Cytology See Pathology rpt
== END 2023-11-13 15:24 | disposition home or self-care (01) ==
LOC: HO.LNP 15:23
PROVIDERS: PCP Internal Medicine; Visit Provider Nurse Practitioner Family
DX: R31.29 Other microscopic hematuria (principal); R89.6 Abnormal cytological findings in specimens from other organs, systems and tissues; N32.89 Other specified disorders of bladder; F17.200 Nicotine dependence, unspecified, uncomplicated
CPT/HCPCS: 81003; 88112; 99212

== ENCOUNTER 2023-12-17 13:48 | Outpatient (AMB) | payer MEDICARE, SELFPAY ==
[2023-12-17 13:54] VITALS: PULSE 65; O2SAT 96; BMI 34.0
--- NOTE | 2023-12-17 13:54 | A.OFFVIS_ITS ---
Vital Signs 12/17/23 13:54 Height 5 ft 7 in Weight 217 lb BMI 34.0 Pulse 65 Pulse Source Pulse Oximeter Pulse Oximetry (%) 96 Oxygen Delivery Method Room Air Intake Visit Reasons: Follow up Conf Intake Note: Patient presents for follow up. patient needs supplies for cpap machine Allergies lithium [LITHIUM] Allergy (Unknown, Verified 12/17/23 13:59) UNKNOWN chlorpromazine [From THORAZINE] Adverse Reaction (Severe, Verified 12/17/23 13:59) PARALYSIS HPI Comments Details: 68-yr-old male presents for follow-up visit of sleep apnea. Pt underwent f/u HST, 12/04/23, AHI 9.1/hr, O2 adry 81% (SpO2 <90% x's 2.9 min, SpO2 < 94% x's 0.6min). Pt reports he is now sleeping better. States he was given a sleeping pill a while ago, which made him sleep better. He took this for 2 weeks, and since he has slept better and thus has been able to use his CPAP more regularly. He was set up with [facility] in Nov 2022- he has since been compliant w/ CPAP. He states he is sleeping well and feels well-retired during the day. However, he needs new supplies. Compliance Report Usage 11/17/2023 - 12/16/2023 Usage days 30/30 days (100%) Usage days >= 4 hours 30 days (100%) Usage days < 4 hours 0 days (0%) Usage hours 240 hours 2 minutes Average usage (days used) 8 hours 0 minutes AirSense 11 AutoSet Serial number [id number] Mode AutoSet Min Pressure 5 cmH2O Max Pressure 20 cmH2O EPR Ramp Only EPR level 3 Response Standard Therapy Pressure, Maximum: 10.3 Leaks - L/min- Median: 23.7 95th percentile: 39.2 Maximum: 49.0 Residual Events per hour AI: 2.0 HI: 0.5 AHI: 2.5. PFSH Medical History Hypertension Surgical History History of hernia surgery H/O colonoscopy Family History Other Mental health disorder Substance use disorder Social History Housing: Apartment Alcohol intake: current Alcohol intake frequency: holidays/special occasions only Patient Tobacco Use Status: Former Tobacco user Tobacco use type: Cigarette e-Cigarette/Vaping Use: Never Used service: No Current occupational status: unemployed Cognitive needs: No Hearing needs: No Vision needs: Yes Review of Systems Const All systems reviewed & are unremarkable except as noted in HPI and below Physical Exam Vital Signs: Last Vital Signs Pulse 65 12/17/23 13:54 Pulse Ox 96 12/17/23 13:54 Oxygen Delivery Method Room Air 12/17/23 13:54 BMI result Body Mass Index 34.0 Const General: no acute distress Orientation/consciousness: patient oriented x3 HEENT Other: Mallampati stage Resp Effort & Inspection: normal respiratory effort and able to speak in complete sentences Auscultation: clear to auscultation bilaterally Neuro General: patient oriented x3 Psych Mental Status: mental status grossly normal Speech and movement: Clear speech present Attitude: cooperative Results Reviewed Results Reviewed: PAP compliance report- see HPI Assessment & Plan Assessment & Plan (1) Mild obstructive sleep apnea: Comment: HST, 12/04/23, AHI 9.1/hr, O2 adry 81% (SpO2 <90% x's 2.9 min, SpO2 < 94% x's 0.6min). Code(s): G47.33 - Obstructive sleep apnea (adult) (pediatric) Category: Medical Plan Continue APAP 5-20 cmH2O nightly > 4 hours, as pt continues to have good clinical effect from use. Clean CPAP machine and supplies routinely. Change CPAP supplies routinely. Will request new PAP supplies. Pt to contact us or respiratory company with any questions or concerns. f/u in 1 yr or sooner prn. Coding Level of Care Code Est Pt Level 3 (82449) Diagnoses Mild obstructive sleep apnea G47.33
== END 2023-12-17 14:34 | disposition home or self-care (01) ==
PROVIDERS: PCP Internal Medicine; Visit Provider Nurse Practitioner Family
DX: G47.33 Obstructive sleep apnea (adult) (pediatric) (principal)
CPT/HCPCS: 99213

== ENCOUNTER → 2023-12-17 13:48 | Outpatient (BNVA) | payer MEDICARE, SELFPAY | PROVIDERS: PCP Internal Medicine; Visit Provider Nurse Practitioner Family | DX: G47.33 Obstructive sleep apnea (adult) (pediatric) (principal) | CPT/HCPCS: 99212 ==

== ENCOUNTER 2024-01-07 12:40 | Outpatient (AMB) | payer MEDICARE, SELFPAY ==
--- NOTE | 2024-01-07 12:42 | MHC.PC.OV ---
Vital Signs 01/07/24 12:43 Height 5 ft 7 in Weight 219 lb 8 oz BMI 34.4 BP 142/80 H Blood Pressure Location Rt brachial Position Sitting Pulse 84 Pulse Source Pulse Oximeter Pulse Oximetry (%) 96 Oxygen Delivery Method Room Air Intake Visit Reasons: 4 month follow up Allergies lithium [LITHIUM] Allergy (Unknown, Verified 01/07/24 12:43) UNKNOWN chlorpromazine [From THORAZINE] Adverse Reaction (Severe, Verified 01/07/24 12:43) PARALYSIS Medication List - Last Reconciled 01/07/24 by Dorothy Phillips MD ascorbate calcium (vitamin C) 500 mg PO DAILY atenolol 25 mg PO DAILY 90 days diphenhydramine HCl (Allergy Relief (diphenhydramine)) 25 mg PO BEDTIME PRN fluticasone propionate 50 mcg/actuation 1 spray intranasal DAILY 30 days [id number] [phone] mcg (Centrum Minis Adults 50 Plus) tabs PO quetiapine 25 mg PO BEDTIME Tobacco use date assessed: 01/07/24 Last assessed Fall Risk: 01/07/24 Dental Screening Dental Screen Date: 01/07/24 Did you have a dental visit in the last 12 months?: Yes Did you have a dental problem in the last 6 months where you did not have access to dental care?: No Was dental information given to patient?: Patient has dentist HPI 4 month follow up HPI Details Patient is 68-year-old gentleman came in today for his regular follow-up appointment Only medication he is taking from this office is atenolol 25 mg He is tolerating medication no side effects, his blood pressure is slightly elevated today however usually it runs below 140 systolic Patient is supposed to be on quetiapine as well but he is not taking it He tells me that he feels he does not need it. Takes Flonase nasal spray for allergies which also he is not taking as he does not have any allergies Patient have history of microscopic hematuria and was referred to Urology for that BMI is elevated at 34.4 need to lose weight He also suffers from mild sleep apnea And have difficulty sleeping at night for that reason he was started on quetiapine which he no longer needs. Patient have appointment for physical exam in August Labs are needed before visit fasting [facility] Medical History Hypertension Surgical History History of hernia surgery H/O colonoscopy Family History Other Mental health disorder Substance use disorder Social History Housing: Apartment Alcohol intake: current Alcohol intake frequency: holidays/special occasions only Patient Tobacco Use Status: Former Tobacco user Tobacco use type: Cigarette e-Cigarette/Vaping Use: Never Used service: No Current occupational status: unemployed Cognitive needs: No Hearing needs: No Vision needs: Yes Questionnaire PHQ-9 Over the last 2 weeks, how often have you been bothered by any of the following problems? 1. Little interest or pleasure in doing things: not at all 2. Feeling down, depressed, or hopeless: not at all 3. Trouble falling or staying asleep, or sleeping too much: not at all 4. Feeling tired or having little energy: not at all 5. Poor appetite or overeating: not at all 6. Feeling bad about yourself - or that you are a failure or have let yourself or your family down: not at all 7. Trouble concentrating on things, such as reading the newspaper or watching television: not at all 8. Moving or speaking so slowly that other people could have noticed. Or the opposite - being so fidgety or restless that you have been moving around a lot more than usual: not at all 9. Thoughts that you would be better off or of hurting yourself in some way: not at all Total score: 0 Depression Screening Interpretation: Negative Depression Screening Done: Yes 68789 - PHQ-9 Billing: Yes Source: Developed by Drs. Duc Zepeda, Nina Oakley, Deandre Brooks and colleagues, with an educational daryl from [employer]. Thrive Questionnaire Date Thrive assessed: 01/07/24 I am a: Patient What is your living situation today?: I have a steady place to live Within the past 12 months, did the food you bought not last and you didn't have the money to get more?: I choose not to answer this question Within the past 12 months, did you worry whether your food would run out before you got money to buy more?: I choose not to answer this question Do you have trouble paying for medicines?: I choose not to answer this question Do you have trouble getting transportation to medical appointments?: I choose not to answer this question Do you have trouble paying your heating and electricity bill?: I choose not to answer this question Do you have trouble taking care of your child, family member or friend?: I choose not to answer this question Do you have trouble with day-to-day activities such as bathing, preparing meals, shopping, managing finances, etc.?: I choose not to answer this question Are you currently unemployed and looking for a job?: I choose not to answer this question Are you interested in more education?: I choose not to answer this question Please select the resources that you would like help with: None Currently or been in a relationship where the following occur: I choose not to answer THRIVE Score: 0 AUDIT C Alcohol Use Questionnaire (AUDIT-C) 1. How often do you have a drink containing alcohol?: Never 3. How often do you have six or more drinks on one occasion?: Never Total Score: 0 Score Reviewed/Action Taken: Yes PERI-7 AMB Questionnaire PERI-7 Date PERI - 7 assessed: 01/07/24 Feeling nervous, anxious, or on edge: 0 = Not at all Not being able to stop or control worryin = Not at all Worrying too much about different things: 0 = Not at all Trouble relaxin = Not at all Being so restless that it is hard to sit still: 0 = Not at all Becoming easily annoyed or irritable: 0 = Not at all Feeling afraid as if something awful might happen: 0 = Not at all Total PERI-7 score (0-4 normal; 5-9 mild; 10-14 moderate; 15-21 severe): 0 Source: Developed by Drs. Duc Zepeda, Nina Oakley, Deandre Brooks and colleagues, with an educational daryl from [employer]. PERI-7 Assessment Billing PERI-7 Assessment Tool: PERI-7 Assessment 52772 Review of Systems Const Denies chills and Denies fever(s) ENT Denies epistaxis and Denies nasal discharge Card Denies chest pain Resp Denies chest congestion, Denies cough and Denies hemoptysis GI Denies diarrhea and Denies nausea Skin/Breast Denies rash Neuro Reports no additional complaints Psych Reports no additional complaints Endo Reports no additional complaints Physical exam (Primary Care) Vital Signs: Last Vital Signs Pulse 84 01/07/24 12:43 BP 142/80 H 01/07/24 12:43 Pulse Ox 96 01/07/24 12:43 Oxygen Delivery Method Room Air 01/07/24 12:43 BMI result Body Mass Index 34.4 Tobacco/Smoking Status: Tobacco use Status Tobacco use date assessed 01/07/24 01/07/24 12:45 Patient Tobacco Use Status Former Tobacco user 01/07/24 12:45 Tobacco use type Cigarette 01/07/24 12:45 e-Cigarette/Vaping Use Never Used 01/07/24 12:45 PHQ-9: PHQ-9 Score PHQ-9: Total score 0 01/07/24 12:45 Depression Screening Interpretation: Negative Thrive Assessment: Date of Thrive Assessment Date Thrive assessed 01/07/24 01/07/24 12:45 Currently or been in a relationship where the following occur: I choose not to answer Const General: cooperative, comfortable and no acute distress Orientation/consciousness: patient oriented x3 HENMT Head: Yes normocephalic Eyes General: appearance normal, both eyes and all related structures Neck Neck: Yes supple Resp Effort & Inspection: normal respiratory effort, no cough and no stridor Cardio Rhythm: regular rhythm Heart sounds: S1 normal heart sound present and S2 normal heart sound present Skin General skin exam: turgor normal Neuro General: patient oriented x3, tone normal and moves all extremities Extrem Right lower extremity: no edema Left lower extremity: no edema Assessment and Plan Assessment & Plan (1) Hypertension, essential: Code(s): I10 - Essential (primary) hypertension (2) LFT elevation: Code(s): R79.89 - Other specified abnormal findings of blood chemistry (3) Psychiatric illness: Code(s): F99 - Mental disorder, not otherwise specified (4) ANNALISE on CPAP: Code(s): G47.33 - Obstructive sleep apnea (adult) (pediatric); Z99.89 - Dependence on other enabling machines and devices (5) Nephropathy: Code(s): N28.9 - Disorder of kidney and ureter, unspecified (6) Microscopic hematuria: Code(s): R31.29 - Other microscopic hematuria Plan Patient is 68-year-old gentleman came in today for his regular follow-up appointment Only medication he is taking from this office is atenolol 25 mg He is tolerating medication no side effects, his blood pressure is slightly elevated today however usually it runs below 140 systolic Patient is supposed to be on quetiapine as well but he is not taking it He tells me that he feels he does not need it. Takes Flonase nasal spray for allergies which also he is not taking as he does not have any allergies Patient have history of microscopic hematuria and was referred to Urology for that BMI is elevated at 34.4 need to lose weight He also suffers from mild sleep apnea And have difficulty sleeping at night for that reason he was started on quetiapine which he no longer needs. Patient have appointment for physical exam in August Labs are needed before visit fasting Orders: Orders Lipid Panel 6 Months F99 - Mental disorder, not otherwise specified, G47.33 - Obstructive sleep apnea (adult) (pediatric), I10 - Essential (primary) hypertension, N28.9 - Disorder of kidney and ureter, unspecified, R31.29 - Other microscopic hematuria, R79.89 - Other specified abnormal findings of blood chemistry, Z99.89 - Dependence on other enabling machines and devices Hemoglobin A1c 6 Months F99 - Mental disorder, not otherwise specified, G47.33 - Obstructive sleep apnea (adult) (pediatric), I10 - Essential (primary) hypertension, N28.9 - Disorder of kidney and ureter, unspecified, R31.29 - Other microscopic hematuria, R79.89 - Other specified abnormal findings of blood chemistry, Z99.89 - Dependence on other enabling machines and devices Complete Blood Count Auto Diff 6 Months F99 - Mental disorder, not otherwise specified, G47.33 - Obstructive sleep apnea (adult) (pediatric), I10 - Essential (primary) hypertension, N28.9 - Disorder of kidney and ureter, unspecified, R31.29 - Other microscopic hematuria, R79.89 - Other specified abnormal findings of blood chemistry, Z99.89 - Dependence on other enabling machines and devices Comprehensive [place]. Panel Fast 6 Months F99 - Mental disorder, not otherwise specified, G47.33 - Obstructive sleep apnea (adult) (pediatric), I10 - Essential (primary) hypertension, N28.9 - Disorder of kidney and ureter, unspecified, R31.29 - Other microscopic hematuria, R79.89 - Other specified abnormal findings of blood chemistry, Z99.89 - Dependence on other enabling machines and devices TSH reflex Free T4 6 Months F99 - Mental disorder, not otherwise specified, G47.33 - Obstructive sleep apnea (adult) (pediatric), I10 - Essential (primary) hypertension, N28.9 - Disorder of kidney and ureter, unspecified, R31.29 - Other microscopic hematuria, R79.89 - Other specified abnormal findings of blood chemistry, Z99.89 - Dependence on other enabling machines and devices Vitamin B12 6 Months F99 - Mental disorder, not otherwise specified, G47.33 - Obstructive sleep apnea (adult) (pediatric), I10 - Essential (primary) hypertension, N28.9 - Disorder of kidney and ureter, unspecified, R31.29 - Other microscopic hematuria, R79.89 - Other specified abnormal findings of blood chemistry, Z99.89 - Dependence on other enabling machines and devices Medications: Refilled atenolol Take 1 full tablet daily 25 mg PO DAILY 90 tabs 3RF 90 days Coding Level of Care Code Est Pt Level 3 (04326) Complex EM visit Add On G2211 Diagnoses Hypertension, essential I10 LFT elevation R79.89 Psychiatric illness F99 ANNALISE on CPAP G47.33; Z99.89 Nephropathy N28.9 Microscopic hematuria R31.29 Additional Codes PERI-7 Assessment Billing - PERI-7 Assessment Tool: PERI-7 Assessment 08496 ([id number])
[2024-01-07 12:43] VITALS: BP 142/80; PULSE 84; O2SAT 96; BMI 34.4
== END 2024-01-07 13:55 | disposition home or self-care (01) ==
PROVIDERS: PCP Internal Medicine; Visit Provider Internal Medicine
DX: I10 Essential (primary) hypertension (principal); R79.89 Other specified abnormal findings of blood chemistry; F99 Mental disorder, not otherwise specified; G47.33 Obstructive sleep apnea (adult) (pediatric); Z99.89 Dependence on other enabling machines and devices; N28.9 Disorder of kidney and ureter, unspecified; R31.29 Other microscopic hematuria
CPT/HCPCS: 99213; G2211

== ENCOUNTER 2024-09-09 07:31 | Outpatient (REF) | payer MEDICARE, SELFPAY ==
--- OUTSIDE RECORDS SUMMARY | 2024-09-09 07:33 | XMS_ITS | Data Portability ---
Author Organization SHANTHI Mcdonald [facility] Address [address] [place] [address] Care Team Providers Care Steerer Name Role Phone IBAN KEVIN Primary Care Provider [phone] Assessment No assessment recorded. Plan of Treatment Reminders Order Date Submit Date Provider Last Modified By Organization Details Last Modified Time Details Appointments None recorded. Lab culture, urine 2022 023 [place] [facility], [address] [place] [address], [place], [address], 3 06:07:30 urinalysis, dipstick 2022 023 [email or web address] [facility], [address] [place], [address], 3 19:19:10 Referral None recorded. Procedures None recorded. Surgeries None recorded. Imaging None recorded. Medication Orders cephalexin 500 mg capsule 2022 023 [id number], [address] [facility] [place], [address], 3 19:27:19 Patient TargetsNo targets recorded. Patient Instructions Encounter Date Encounter Id Patient Instructions Last Modified By Organization Details Last Modified Time 05/20/2022 [id number] We are going to treat you for a presumed urinary tract infection. You have been prescribed an antibiotic, ensure you take this as prescribed and for its intended length of time. It is important you ensure you are drinking plenty of fluids, especially water, to avoid dehydration. Drinking water helps dilute your urine and ensures that you'll urinate frequently, allowing bacteria to be flushed from your urinary tract. Should your symptoms persist despite taking your antibiotic, you should follow up with your primary care provider or [facility] if they are unavailable. [email or web address] Not available 05/20/2022 19:14:20 Reason for Referral None Reported. Results Created Date Observation Date Name Description Value Unit Range Abnormal Flag Note LastModifiedBy Organization Detail LastModifiedTime 05/20/19 23 05/23/2022 URINE CULTU RE, ROUTI NE urine culture, routine FINAL REPORT Not Available [facility] [address] [place], [address], 05/23/2022 06:07:30 05/20/19 23 05/23/2022 URINE CULTU RE, ROUTI NE result 1 COMMEN T Cultu re shows less than 10,00 0 colon y formi ng units of bacte saul per sandeep liter of urine . This colon y count is not gener ally consi dered to be clini agustin signi fican t. Not Available [facility] [address] [facility], [place], [address], 05/23/2022 06:07:30 05/20/19 23 05/20/2022 urina lysis , dipst ick Unknown Analyte Yellow Not Available [facility] [address], [address], 05/20/2022 18:50:05 05/20/19 23 05/20/2022 urina lysis , dipst ick Unknown Analyte Clear Not Available _ [facility] [address], [address], 05/20/2022 18:50:05 05/20/19 23 05/20/2022 urina lysis , dipst ick Unknown Analyte Negati ve Not Available yamileth hoyos [address], [address], 05/20/2022 18:50:05 05/20/19 23 05/20/2022 urina lysis , dipst ick Unknown Analyte Negati ve Not Available [facility], [place], [address], 05/20/2022 18:50:05 05/20/19 23 05/20/2022 urina lysis , dipst ick Unknown Analyte Negati ve Not Available [facility] [address], [place], [address], 05/20/2022 18:50:05 05/20/19 23 05/20/2022 urina lysis , dipst ick Unknown Analyte 1.025 Not Available [facility] [address], [place], [address], 05/20/2022 18:50:05 05/20/19 23 05/20/2022 urina lysis , dipst ick Unknown Analyte Modera te Not Available yamileth pe [address], [place], [address], 05/20/2022 18:50:05 05/20/19 23 05/20/2022 urina lysis , dipst ick Unknown Analyte 6.0 Not Available [facility] [address], [place], [address], 05/20/2022 18:50:05 05/20/19 23 05/20/2022 urina lysis , dipst ick Unknown Analyte 100 mg/dL Not Available [facility] [address], [place], [address], 05/20/2022 18:50:05 05/20/19 23 05/20/2022 urina lysis , dipst ick Unknown Analyte 1.0 E.U./d L Not Available [facility], [place], [address], 05/20/2022 18:50:05 0105/20/2022 urina lysis , dipst ick Unknown Analyte Negati ve Not Available [address] [place], [address], 05/20/2022 18:50:05 05/20/1905/20/2022 urina lysis , dipst ick Unknown Analyte Negati ve Not Available [address] [place], [address], 05/20/2022 18:50:05 Result Notes None recorded. Problems Name Problem SNOMED Code Status Onset Date Resolution Date Notes Provider Name and Address Organization Details Recorded Time Hypertensive disorder 39596013 Active 2022 FRANKO dowling PA - [facility] 18:46:41 Notes:pt declines to answer- -keeps repeating I dont understandn what you are asking me--what do you want to know --asked pt if he has ever been dx with any medical conditions--repeated same statement several times Problem Notes None recorded. Procedures Surgical History Date Name Laterality Status Provider Name and Address Organization Details Recorded Time hernia repair completed FRANKO BUENROSTRO PA - [facility] 05/20/2022 18:49:22 colonoscopy completed FRANKO BUENROSTRO PA - [facility] 05/20/2022 18:49:35 endoscopy completed FRANKO BUENROSTRO PA - [facility] 05/20/2022 18:49:43 operation on testis completed FRANKO BUENROSTRO PA - [facility] 05/20/2022 18:50:34 Imaging Results None recorded. Procedure Notes None recorded. Medical Equipment None Reported. Allergies Allergen ID Allergen Name Allergen Category Reaction Reaction Severity Criticality Documentation Date Start Date Code Code System Note Provider Name and Address Organization Details Recorded Time 921643 Haldol medicatio n swelling Not available Not available 05/20/2022 04196 9 RxNorm FRANKO dowling PA - [facility] 18:44:57 Medications Name Sig Start Date Stop Date Status Note LastModified by Organization Details LastModified Time atenolol 25 mg tablet active Not Available Not Available No t Available cephalexin 500 mg capsule Take 1 capsule every 8 hours by oral route with meals for 7 days. 2022 active Not Available Not Available Not Avai lable fluticasone propionate 50 mcg/actuati on nasal spray,suspe nsion INSTILL 1 SPRAY INTO EACH NOSTRIL ONCE DAILY X30 DAYS active Not Available Not Available No t Available atenolol 50 mg tablet TAKE 1 TABLET BY MOUTH EVERY DAY active Not Available Not Available No t Available ferrous sulfate 324 mg (65 mg iron) tablet,gilberto yed release TAKE 1 TABLET BY MOUTH EVERY OTHER DAY active Not Available Not Available No t Available BinaxNOW COVID-19 Ag Self Test kit TEST DIRECTED TODAY 05/20 completed Not Available Not Available Not Available Vitals Date Recorded Body height Body mass index (BMI) Body weight Body temperature Respiratory rate Oxygen saturation Oxygen saturation in Arterial blood by Pulse oximetry Heart rate Systolic blood pressure Diastolic blood pressure Provider Name and Address Organization Details Last Updated DateTime 3 175.26 cm 30.4 kg/m2 76357.0 3 g 97 [degF] 16 /min 96 % 96 % 61 /min 114 mm[Hg] 79 mm[Hg] FRANKO BUENROSTRO PA - [facility] 3 18:55:14 Social History None recorded. Functional Status None recorded. Mental Status None recorded. Family History Nothing Reported Notes:pt unable to understan d to answer Medical History No medical history recorded. Past Encounters Encounter ID Performer Location Encounter Start Date Encounter Closed Date Diagnosis/Indication Diagnosis SNOMED-CT Code Diagnosis ICD10 Code Diagnosis Note [id number] [facility] [address] [place] [address] 11/18/2021 11:29:05 11/18/2021 12:25:05 [id number] [facility] [place] [address] 07/28/2019 13:55:53 07/28/2019 16:22:58 [id number] Woody Vides NP [facility] [address] [place] [address] 05/20/2022 17:47:28 05/20/2022 19:21:05 Abnormal urine 415295817 R82.90 Acute urin umu tract infection 801935922 N39.0 Health Concerns Section Related Observation LastModified by Organization Detai ls LastModified Time None Recorded Concern Status LastModified by Organization Details LastModified Time None Recorded Advance Directives Directive None Recorded Payers Insurance Date Sequence Insurance Name Policy Number Policy Tejada Covered Member ID Tejada Member ID Guarantor Name 05/20/2022 2 [place]ICARE [place]: [employer] Duc Monahan [id number] Duc Monahan 07/03/2022 1 BS-[place]: MEDICARE HMO BLUE (MEDICARE REPLACEMENT HMO) [id number] Duc Monahan [id number] Duc Monahan Notes Date Note Type Note Provider Name and Address Organization Details Recorded Time 05/20/2022 text/html dysuria, frequency and urgency x 1 day. denies any fever or fever with chills, denies any History of renal stone or bladder issues. Woody Vides NP [address] [place], [address], [place] - [facility] 05/20/2022 19:27:24
[2024-09-09 09:52] LABS: MANUAL DIFF FLAG NO
[2024-09-09 10:05] LABS: Basophils Percent Auto 0.4 % (0-2); Eosinophils Absolute Auto 0.1 X10*3/uL (0.0-0.4); Eosinophils Percent Auto 1.3 % (0-4); Hematocrit 40.5 % (42.0-52.0); Hemoglobin 13.6 g/dl (14.0-18.0); Imm Gran Abs Auto 0.02 X10*3/uL (0.00-0.03); Imm Gran Pct Auto 0.3 % (0.0-0.4); Lymphocytes Absolute Auto 0.9 X10*3/uL (1.2-4.9); Lymphocytes Percent Auto 13.2 % (20-40); Mean Corpuscular HGB Conc 33.6 g/dl (31.0-36.0); Mean Corpuscular Hemoglobin 32.1 pg (27.0-33.0); Mean Corpuscular Volume 95.5 fL (80.0-98.0); Mean Platelet Volume 10.4 fL (9.4-12.4); Monocytes Absolute Auto 0.7 X10*3/uL (0.1-1.2); Monocytes Percent Auto 10.1 % (2-11); Neutrophils Absolute Auto 5.3 x10*3/uL (2.0-8.3); Neutrophils Percent Auto 74.7 % (45-73); Platelet Count 172 X10*3/uL (160-400); Red Blood Count 4.24 X10*6/uL (4.60-5.80); Red Cell Distribution Width 12.7 % (11.0-16.0); White Blood Count 7.1 X10*3/uL (4.8-10.8)
[2024-09-09 10:13] LABS: Estimated Average Glucose 108 mg/dL; Hemoglobin A1C 123.8537 umol/L; Hemoglobin A1c % 5.4 % (<6.0); Total Hemoglobin (HGBA1C) 3461.0229 umol/L
[2024-09-09 10:45] LABS: Alanine Aminotransferase 18 U/L (0-40); Alkaline Phosphatase 65 U/L (39-117); Anion Gap 13 (12-20); Aspartate Amino Transferase 20 U/L (5-37); Bilirubin Total 0.8 mg/dL (0.0-1.0); Blood Urea Nitrogen 26 mg/dL (9-16); Calcium 9.3 mg/dL (8.4-10.2); Carbon Dioxide 25 mmol/L (22-29); Chloride 108 mmol/L (96-108); Cholesterol 222 mg/dL (<200); Estimated Glomerular Filt Rate > 60; Glucose Fasting 102 mg/dL (60-99); HDL Cholesterol 56 mg/dL (>40); LDL Cholesterol Calculated 144 mg/dL (<100); Potassium 4.3 mmol/L (3.3-5.1); Sodium 142 mmol/L (135-145); TSH reflex Free T4 3.93 uIU/mL (0.32-4.0); Total Protein 7.1 g/dL (6.5-8.0); Triglycerides 114 mg/dL (<150)
[2024-09-09 10:50] LABS: Vitamin B12 451 pg/mL (200-900)
== END 2024-09-09 07:32 | disposition home or self-care (01) ==
LOC: HO.HMGCLDS 07:31
PROVIDERS: PCP Internal Medicine; Visit Provider Internal Medicine
DX: Z00.01 Encounter for general adult medical examination with abnormal findings (principal); R79.89 Other specified abnormal findings of blood chemistry; F99 Mental disorder, not otherwise specified; G47.33 Obstructive sleep apnea (adult) (pediatric); Z99.89 Dependence on other enabling machines and devices; N28.9 Disorder of kidney and ureter, unspecified; R31.29 Other microscopic hematuria; I10 Essential (primary) hypertension
CPT/HCPCS: 36415; 80053; 80061; 82607; 83036; 84443; 85025; 96127; 99397

== ENCOUNTER 2024-09-09 12:14 | Outpatient (AMB) | payer MEDICARE, SELFPAY ==
--- NOTE | 2024-09-09 12:19 | A.OFFPC_ITS ---
Vital Signs 09/09/24 12:20 Height 5 ft 7 in Weight 202 lb 8 oz BMI 31.7 BP 128/78 Blood Pressure Location Rt brachial Position Sitting Pulse 55 Pulse Source Pulse Oximeter Pulse Oximetry (%) 98 Oxygen Delivery Method Room Air Intake Visit Reasons: Annual PE Allergies lithium [LITHIUM] Allergy (Unknown, Verified 09/09/24 12:20) UNKNOWN chlorpromazine [From THORAZINE] Adverse Reaction (Severe, Verified 09/09/24 12:20) PARALYSIS Medication List - Last Reconciled 09/09/24 by Dorothy Phillips MD ascorbate calcium (vitamin C) 500 mg PO DAILY atenolol 25 mg PO DAILY 90 days diphenhydramine HCl (Allergy Relief (diphenhydramine)) 25 mg PO BEDTIME PRN fluticasone propionate 50 mcg/actuation 1 spray intranasal DAILY 30 days [id number]-[id number] 153-69-502-125 mcg (Centrum Minis Adults 50 Plus) tabs PO quetiapine 25 mg PO BEDTIME Tobacco use date assessed: 09/09/24 Fall risk assessment: No Falls in past year Last assessed Fall Risk: 09/09/24 Dental Screening Dental Screen Date: 09/09/24 Did you have a dental visit in the last 12 months?: Yes Did you have a dental problem in the last 6 months where you did not have access to dental care?: No Was dental information given to patient?: Patient has dentist HPI Annual PE HPI Details History of Present Illness - The patient is a 69-year-old male pres enting for a physical exam - Essential Hypertension: The patient is on Atenolol 25 mg for management of high blood pressure. - Allergic Rhinitis: Patient uses a nasa l spray for allergies, including Fluticasone. - Sleep Disorder: The patient sometimes takes Quetiapine, 25 mg, as needed for sleep and psychiatric illness. He has not taken it in two weeks due to excessive somnolence. - Colon Screening: The patient had a col onoscopy in 2017 which was normal, next one recommended in 2027. - Stable Anemia: Noted in recent labs; p atient denies bleeding hemorrhoids or related issues. - Prediabetes: Fasting blood sugar found to be 102 mg/dL, patient advised on dietary adjustments to avoid progression. - Hyperlipidemia: LDL cholesterol slight ly elevated at 144 mg/dL. Patient had urogram CT done 2023 which showed urothelial carcinoma Large hiatal hernia and gallstones without gallbladder inflammation Patient decided not to pursue the treatment for carcinoma Health Maintenance - Colonoscopy performed in 2017, normal results, next screening due in 2027. - Fasting blood sugar at 102 mg/dL, bala cating at risk for developing diabetes, counselled on dietary management. - Patient advised to consider the pneumo coccal vaccine. - Regular blood pressure monitoring with a follow-up suggested in six months. Medications - Atenolol 25 mg for Essential Hypertens ion - Nasal spray (including Fluticasone) fo r Allergic Rhinitis - Quetiapine 25 mg for Sleep Disorder (a s needed) Diagnostic results - Labs: Slight anemia stable as per rece nt tests, fasting blood sugar 102 mg/dL, LDL 144 mg/dL, normal Vitamin B12, normal thyroid function. Patient Instructions - Monitor blood pressure daily and retur n for re-evaluation in six months. - Control dietary sugar intake to manage prediabetes risk. - Consider pneumococcal vaccination at [facility]. - Discussed use of Quetiapine: try takin g half the dose if experiencing excessive sleepiness. Review of Systems - General: No fever no chills - Neurological: No headaches no dizzin ess - Ear nose throat: No sore throat no hearing difficulty no ear pain - Cardiovascular: No syncope, no chest pain, no palpitations - Gastrointestinal: No nausea vomiting or diarrhea - Endocrine: No polyuria polydipsia no heat intolerance - Genitourinary: No dysuria - Skin: No new complaints Physical Exam General: Cooperative, healthy appearing, comfortable, no acute distress Orientation: Patient oriented x3 Head: Normal to inspection Ears: Within normal limit visually Nose: Normal external nose present Face and sinus: Normal facial exam Eyes: Appearance normal, extraocular movement intact pupils reactive Neck: Normal visual inspection and supple Respiratory: Normal respiratory effort and able to speak in complete sentences. Clear to auscultation, no stridor Cardiovascular: S1 and S2 RRR GI: Normal to inspection. Soft to palpation and nontender Skin: Turgor normal, no acute findings Neuro: Patient oriented x3, motor sensory intact, balance intact, tandem pass Extremities: Normal to inspection, no swelling PFSH Medical History Hypertension Surgical History History of hernia surgery H/O colonoscopy Family History Other Mental health disorder Substance use disorder Social History Housing: Apartment Alcohol intake: current Alcohol intake frequency: holidays/special occasions only Patient Tobacco Use Status: Former Tobacco user Tobacco use type: Cigarette e-Cigarette/Vaping Use: Never Used service: No Current occupational status: unemployed Cognitive needs: No Hearing needs: No Vision needs: Yes Questionnaire PHQ-9 Over the last 2 weeks, how often have you been bothered by any of the following problems? 1. Little interest or pleasure in doing things: not at all 2. Feeling down, depressed, or hopeless: not at all 3. Trouble falling or staying asleep, or sleeping too much: not at all 4. Feeling tired or having little energy: not at all 5. Poor appetite or overeating: not at all 6. Feeling bad about yourself - or that you are a failure or have let yourself or your family down: not at all 7. Trouble concentrating on things, such as reading the newspaper or watching television: not at all 8. Moving or speaking so slowly that other people could have noticed. Or the opposite - being so fidgety or restless that you have been moving around a lot more than usual: not at all 9. Thoughts that you would be better off or of hurting yourself in some way: not at all Total score: 0 Depression Screening Interpretation: Negative Depression Screening Done: Yes 70282 - PHQ-9 Billing: Yes Source: Developed by Drs. Duc Zepeda, Nina Oakley, Deandre Brooks and colleagues, with an educational daryl from [employer]. Thrive Questionnaire Date Thrive assessed: 09/09/24 I am a: Patient What is your living situation today?: I have a steady place to live Within the past 12 months, did the food you bought not last and you didn't have the money to get more?: Never true Within the past 12 months, did you worry whether your food would run out before you got money to buy more?: Never true Do you have trouble paying for medicines?: No Do you have trouble getting transportation to medical appointments?: No Do you have trouble paying your heating and electricity bill?: No Do you have trouble taking care of your child, family member or friend?: No Do you have trouble with day-to-day activities such as bathing, preparing meals, shopping, managing finances, etc.?: No Are you currently unemployed and looking for a job?: I choose not to answer this question Are you interested in more education?: I choose not to answer this question Please select the resources that you would like help with: None Currently or been in a relationship where the following occur: No concerns reported THRIVE Score: 0 AUDIT C Alcohol Use Questionnaire (AUDIT-C) 1. How often do you have a drink containing alcohol?: Monthly or less 2. How many drinks containing alcohol do you have on a typical day when you are drinking?: 1 or 2 3. How often do you have six or more drinks on one occasion?: Less than monthly Total Score: 2 Score Reviewed/Action Taken: Yes PERI-7 AMB Questionnaire PERI-7 Date PERI - 7 assessed: 09/09/24 Feeling nervous, anxious, or on edge: 0 = Not at all Not being able to stop or control worryin = Not at all Worrying too much about different things: 0 = Not at all Trouble relaxin = Not at all Being so restless that it is hard to sit still: 0 = Not at all Becoming easily annoyed or irritable: 0 = Not at all Feeling afraid as if something awful might happen: 0 = Not at all Total PERI-7 score (0-4 normal; 5-9 mild; 10-14 moderate; 15-21 severe): 0 Source: Developed by Drs. Duc Zepeda, Nina Oakley, Deandre Brooks and colleagues, with an educational daryl from [employer]. PERI-7 Assessment Billing PERI-7 Assessment Tool: PERI-7 Assessment 00363 Physical exam (Primary Care) Vital Signs: Last Vital Signs Pulse 55 09/09/24 12:20 BP 128/78 09/09/24 12:20 Pulse Ox 98 09/09/24 12:20 Oxygen Delivery Method Room Air 09/09/24 12:20 BMI result Body Mass Index 31.7 Tobacco/Smoking Status: Tobacco use Status Tobacco use date assessed 09/09/24 09/09/24 12:22 Patient Tobacco Use Status Former Tobacco user 09/09/24 12:22 Tobacco use type Cigarette 09/09/24 12:22 e-Cigarette/Vaping Use Never Used 09/09/24 12:22 PHQ-9: PHQ-9 Score PHQ-9: Total score 0 09/09/24 12:53 Depression Screening Interpretation: Negative Thrive Assessment: Date of Thrive Assessment Date Thrive assessed 09/09/24 09/09/24 12:35 Currently or been in a relationship where the following occur: No concerns reported Coding Level of Care Code Est Pt Level 3 (38443) Est Pt Prev Care >65y(05514) Diagnoses Encounter for general adult medical examination with abnormal findings Z00.01 Hypertension, essential I10 Urothelial carcinoma of bladder C67.9 Microscopic hematuria R31.29 Allergic rhinitis, unspecified seasonality, unspecified trigger J30.9 Allergic rhinitis trigger: unspecified Allergic rhinitis seasonality: unspecified Psychiatric illness F99 Anemia, unspecified type D64.9 Anemia type: unspecified type Additional Codes PERI-7 Assessment Billing - PERI-7 Assessment Tool: PERI-7 Assessment 32214 ([id number]) PHQ-9 - 79968 - PHQ-9 Billing: Yes ([id number]) Assessment & Plan Assessment & Plan (1) Encounter for general adult medical examination with abnormal findings: Code(s): Z00.01 - Encounter for general adult medical examination with abnormal findings Category: Medical (2) Hypertension, essential: Code(s): I10 - Essential (primary) hypertension Category: Medical (3) Urothelial carcinoma of bladder: Code(s): C67.9 - Malignant neoplasm of bladder, unspecified Category: Medical (4) Microscopic hematuria: Code(s): R31.29 - Other microscopic hematuria Category: Medical (5) Allergic rhinitis: Code(s): J30.9 - Allergic rhinitis, unspecified Category: Medical Qualifiers: Allergic rhinitis trigger: unspecified Allergic rhinitis seasonality: unspecified Qualified Code(s): J30.9 - Allergic rhinitis, unspecified (6) Psychiatric illness: Code(s): F99 - Mental disorder, not otherwise specified Category: Medical (7) Anemia: Code(s): D64.9 - Anemia, unspecified Category: Medical Qualifiers: Anemia type: unspecified type Qualified Code(s): D64.9 - Anemia, unspecified Plan History of Present Illness - The patient is a 69-year-old male presenting for a physical exam - Essential Hypertension: The patient is on Atenolol 25 mg for management of high blood pressure. - Allergic Rhinitis: Patient uses a nasal spray for allergies, including Fluticasone. - Sleep Disorder: The patient sometimes takes Quetiapine, 25 mg, as needed for sleep and psychiatric illness. He has not taken it in two weeks due to excessive somnolence. - Colon Screening: The patient had a colonoscopy in 2017 which was normal, next one recommended in 2027. - Stable Anemia: Noted in recent labs; patient denies bleeding hemorrhoids or related issues. - Prediabetes: Fasting blood sugar found to be 102 mg/dL, patient advised on dietary adjustments to avoid progression. - Hyperlipidemia: LDL cholesterol slightly elevated at 144 mg/dL. Patient had urogram CT done 2023 which showed urothelial carcinoma Large hiatal hernia and gallstones without gallbladder inflammation Patient decided not to pursue the treatment for carcinoma Health Maintenance - Colonoscopy performed in 2017, normal results, next screening due in 2027. - Fasting blood sugar at 102 mg/dL, indicating at risk for developing diabetes, counselled on dietary management. - Patient advised to consider the pneumococcal vaccine. - Regular blood pressure monitoring with a follow-up suggested in six months. Medications - Atenolol 25 mg for Essential Hypertension - Nasal spray (including Fluticasone) for Allergic Rhinitis - Quetiapine 25 mg for Sleep Disorder (as needed) Diagnostic results - Labs: Slight anemia stable as per recent tests, fasting blood sugar 102 mg/dL, LDL 144 mg/dL, normal Vitamin B12, normal thyroid function. Patient Instructions - Monitor blood pressure daily and return for re-evaluation in six months. - Control dietary sugar intake to manage prediabetes risk. - Consider pneumococcal vaccination at the pharmacy. - Discussed use of Quetiapine: try taking half the dose if experiencing excessive sleepiness.
[2024-09-09 12:20] VITALS: BP 128/78; PULSE 55; O2SAT 98; BMI 31.7
== END 2024-09-09 12:54 | disposition home or self-care (01) ==
LOC: HO.HMCC 12:16
PROVIDERS: PCP Internal Medicine; Visit Provider Internal Medicine
DX: Z00.00 Encounter for general adult medical examination without abnormal findings (principal); I10 Essential (primary) hypertension; C67.9 Malignant neoplasm of bladder, unspecified; R31.29 Other microscopic hematuria; J30.9 Allergic rhinitis, unspecified; F99 Mental disorder, not otherwise specified; D64.9 Anemia, unspecified

== ENCOUNTER 2024-12-12 13:04 | Outpatient (AMB) | payer MEDICARE, SELFPAY ==
[2024-12-12 13:11] VITALS: BP 106/70; PULSE 69; RESP 17; TEMP 36.6; O2SAT 95; BMI 33.0
--- NOTE | 2024-12-12 13:11 | MHC.OFFWIV ---
Intake Vital Signs 12/12/24 13:11 Height 5 ft 7 in Weight 211 lb BMI 33.0 BP 106/70 Blood Pressure Location Lt brachial Position Sitting Respiration 17 Pulse 69 Pulse Source Pulse Oximeter Temp 97.9 F Temp Source Oral Pulse Oximetry (%) 95 Oxygen Delivery Method Room Air Intake Visit Reasons: EP swimmers ear? Intake Note: Pt is here today c/o ?bilateral swimmers ear Patient Tobacco Use Status: Former Tobacco user Allergies lithium (LITHIUM) Allergy (Unknown, Verified 12/12/24 13:12) UNKNOWN chlorpromazine (From THORAZINE) Adverse Reaction (Severe, Verified 12/12/24 13:12) PARALYSIS Medication List - Last Reconciled 12/12/24 by Sean Chavira MD ascorbate calcium (vitamin C) 500 mg PO DAILY atenolol 25 mg PO DAILY 90 days diphenhydramine HCl (Allergy Relief (diphenhydramine)) 25 mg PO BEDTIME PRN fluticasone propionate 50 mcg/actuation 1 spray intranasal DAILY 30 days [id number]-piu-[id number]-Z5-loexdpp-wivixd 422-55-062-125 mcg (Centrum Minis Adults 50 Plus) tabs PO ofloxacin 0.3% 5 drps otic (ears) DAILY 7 days quetiapine 25 mg PO BEDTIME HPI EP swimmers ear? HPI Details Irritation of bilateral ear Patient likes to swim a lot. He also keeps ear buds in his ears for long periods of time. His ear buds appear old and frayed as well as discolored. Has tried Debrox drops without much improvement No change in hearing PFSH Medical History Hypertension Surgical History History of hernia surgery H/O colonoscopy Family History Other Mental health disorder Substance use disorder Social History Housing: Apartment Alcohol intake: current Alcohol intake frequency: holidays/special occasions only Patient Tobacco Use Status: Former Tobacco user Tobacco use type: Cigarette e-Cigarette/Vaping Use: Never Used service: No Current occupational status: unemployed Cognitive needs: No Hearing needs: No Vision needs: Yes Review of Systems Const Denies chills, Denies fatigue, Denies fever(s), Denies headache(s) and Denies weakness ENT Details: See HPI Denies dizziness and Denies headache(s) Card Denies dyspnea Resp Denies cough, Denies dyspnea, Denies wheezing and Denies other ( shortness of breath) Musc Denies numbness and Denies tingling Neuro Denies dizziness, Denies headache(s), Denies numbness, Denies tingling, Denies paresthesias and Denies weakness Psych Denies anxiety and Denies depression Endo Denies fatigue Aller/Immun Denies wheezing Physical Exam Vital Signs: Last Vital Signs Temp 97.9 F 12/12/24 13:11 Pulse 69 12/12/24 13:11 Resp 17 12/12/24 13:11 BP 106/70 12/12/24 13:11 Pulse Ox 95 12/12/24 13:11 Oxygen Delivery Method Room Air 12/12/24 13:11 BMI result Body Mass Index 33.0 Const General: no acute distress and well developed Nutritional Appearance: well nourished Orientation/consciousness: patient oriented x3 HEENT Other: Right ear canal erythema, swelling and some pus . TM appears normal Left ear canal erythema with mild flaking of skin Head: Yes normocephalic and Yes atraumatic Eyes General: appearance normal, both eyes and all related structures Pupils: Equal, round and reactive pupils present EOM: EOMs intact bilaterally Resp Effort & Inspection: normal respiratory effort Neuro General: patient oriented x3 and gait normal Cranial nerves: Yes Equal, round and reactive pupils present Psych Affect: normal affect Assessment & Plan Assessment & Plan (1) Otitis externa: Code(s): H60.90 - Unspecified otitis externa, unspecified ear Plan: Right otitis externa and left ear canal irritation He is using ear buds that may be causing irritation and allergic reaction which seems to have resulted in an ear canal infection on the right Will give him ofloxacin for otitis externa of the right ear canal He can use ascetic acid on a cotton ball for left ear canal irritation and bacterial overgrowth or fungal infection. Advised he look for ?surgical grade silicone ear tips but for now, avoid using any ear buds in his ears until they have healed. Medications: New ofloxacin 0.3% 5 drps otic (ears) DAILY 5 mL 0RF 7 days Coding Level of Care Code Est Pt Level 3 (67869) Diagnoses Otitis externa H60.90
== END 2024-12-12 14:20 | disposition home or self-care (01) ==
PROVIDERS: PCP Internal Medicine; Visit Provider Family Medicine
DX: H60.93 Unspecified otitis externa, bilateral (principal)

== ENCOUNTER → 2024-12-12 13:04 | Outpatient (BNVA) | payer MEDICARE, SELFPAY | PROVIDERS: PCP Internal Medicine | DX: H60.93 Unspecified otitis externa, bilateral (principal) | CPT/HCPCS: 99212 ==

== ENCOUNTER 2024-12-15 12:48 | Outpatient (AMB) | payer MEDICARE, SELFPAY ==
[2024-12-15 12:49] VITALS: BP 132/86; PULSE 64; O2SAT 95; BMI 32.9
--- NOTE | 2024-12-15 12:49 | A.OFFVIS_ITS ---
Vital Signs 12/15/24 12:49 Height 5 ft 7 in Weight 210 lb 4 oz BMI 32.9 BP 132/86 Blood Pressure Location Rt brachial Position Sitting Pulse 64 Pulse Source Pulse Oximeter Pulse Oximetry (%) 95 Oxygen Delivery Method Room Air Intake Visit Reasons: 1yr Follow up Intake Note: Patient presents follow up ANNALISE. Compliance in chart. Allergies lithium (LITHIUM) Allergy (Unknown, Verified 12/15/24 12:53) UNKNOWN chlorpromazine (From THORAZINE) Adverse Reaction (Severe, Verified 12/15/24 12:53) PARALYSIS Medication List - Last Reconciled 12/15/24 by HA Uribe ascorbate calcium (vitamin C) 500 mg PO DAILY atenolol 25 mg PO DAILY 90 days diphenhydramine HCl (Allergy Relief (diphenhydramine)) 25 mg PO BEDTIME PRN fluticasone propionate 50 mcg/actuation 1 spray intranasal DAILY 30 days ct-eaf-vgpwc-E6-nwfqhem-owxahb 590-17-903-125 mcg (Centrum Minis Adults 50 Plus) tabs PO ofloxacin 0.3% 5 drps otic (ears) DAILY 7 days quetiapine 25 mg PO BEDTIME HPI Comments Details: 69-yr-old male presents for follow-up visit of sleep apnea. 12/04/23 HST, AHI 9.1/hr, O2 adry 81% (SpO2 <90% x's 2.9 min, SpO2 < 94% x's 0.6min). Pt reports he is sleeping well. Uses quetiapine to relax, which at times can make him sleepy. He states this was given to him by [employer], who provided home services; however, [facility] no longer covers this service. He is open to reestablishing care with/ a mental health clinic, preferably a home-based program. He has been compliant with/ CPAP. He states he is sleeping well and feels well-rested during the day. He has enough CPAP supplies- states need a new supply order. Compliance Report Usage 09/03/2024 - 12/01/2024 Overall Usage 100% Usage days >= 4 hours 92% Average usage (days used) 5 hours 53 minutes AirSense 11 AutoSet Serial number [id number] Mode APAP 5-20 cmH2O w/ EPR 3 Response Standard Therapy Pressure, Maximum: 12.6 cmH2O Leaks - L/min- Median: 7.4 Residual AHI: 1.9/hr [facility] Medical History Hypertension Surgical History History of hernia surgery H/O colonoscopy Family History Other Mental health disorder Substance use disorder Social History Housing: Apartment Alcohol intake: current Alcohol intake frequency: holidays/special occasions only Patient Tobacco Use Status: Former Tobacco user Tobacco use type: Cigarette e-Cigarette/Vaping Use: Never Used service: No Current occupational status: unemployed Cognitive needs: No Hearing needs: No Vision needs: Yes Review of Systems Const All systems reviewed & are unremarkable except as noted in HPI and below Physical Exam Vital Signs: Last Vital Signs Pulse 64 12/15/24 12:49 BP 132/86 12/15/24 12:49 Pulse Ox 95 12/15/24 12:49 Oxygen Delivery Method Room Air 12/15/24 12:49 BMI result Body Mass Index 32.9 Const General: no acute distress Orientation/consciousness: patient oriented x3 HEENT Other: Mallampati stage Resp Effort & Inspection: normal respiratory effort and able to speak in complete sentences Auscultation: clear to auscultation bilaterally Neuro Other: decreased hearing- has a recent AOM infection- needs to start tx General: patient oriented x3 and moves all extremities Cranial nerves: Yes Normal facial strength present and Yes Ability to bilaterally elevate shoulders present Cognition (Neuro): normal cognition Gait exam (Neuro): Normal gait present Psych Mental Status: mental status grossly normal Speech and movement: Clear speech present Attitude: cooperative Results Reviewed Results Reviewed: PAP compliance report- see HPI Assessment & Plan Assessment & Plan (1) Mild obstructive sleep apnea: Comment: HST, 12/04/23, AHI 9.1/hr, O2 adry 81% (SpO2 <90% x's 2.9 min, SpO2 < 94% x's 0.6min). Code(s): G47.33 - Obstructive sleep apnea (adult) (pediatric) Category: Medical (2) Mood disorder: Code(s): F39 - Unspecified mood [affective] disorder Category: Medical Plan Continue APAP 5-20 cmH2O nightly > 4 hours, as pt continues to have good clinical effect from use. * Clean CPAP machine and supplies routinely. * Change CPAP supplies routinely. * Use distilled water w/ CPAP water resorvoir. * New PAP supply order written * Pt to contact us or respiratory company with any questions or concerns. For sleep difficulties: Continue quetiapine 25 mg tab, 1/2-1 tab daily at bedtime As patient is pressing interested in reestablishing care with mental health clinic, which he states his daughter would also like him to do, we will initiate a referral back to community nurse navigator, to help patient published care with preferably a homemaker mental health program for both therapy and prescription management. f/u in 1 yr or sooner prn. Orders: Referrals Nurse Navigator Referral F39 - Unspecified mood [affective] disorder Coding Level of Care Code Est Pt Level 4 (66909) Diagnoses Mild obstructive sleep apnea G47.33 Mood disorder F39
== END 2024-12-15 13:43 | disposition home or self-care (01) ==
LOC: HO.HSMS 12:48
PROVIDERS: PCP Internal Medicine; Visit Provider Nurse Practitioner Family
DX: G47.33 Obstructive sleep apnea (adult) (pediatric) (principal); F39 Unspecified mood [affective] disorder
CPT/HCPCS: 99214

== ENCOUNTER → 2024-12-15 12:48 | Outpatient (BNVA) | payer MEDICARE, SELFPAY | PROVIDERS: PCP Internal Medicine; Visit Provider Nurse Practitioner Family | DX: G47.33 Obstructive sleep apnea (adult) (pediatric) (principal) | CPT/HCPCS: 99212 ==

== ENCOUNTER 2025-03-16 10:36 | Outpatient (REF) | payer MEDICARE, SELFPAY ==
[2025-03-16 13:31] LABS: MANUAL DIFF FLAG NO
[2025-03-16 13:43] LABS: Hematocrit 41.0 % (42.0-52.0); Hemoglobin 13.3 g/dl (14.0-18.0); Imm Gran Abs Auto 0.00 X10*3/uL (0.00-0.03); Imm Gran Pct Auto 0.0 % (0.0-0.4); Lymphocytes Absolute Auto 0.9 X10*3/uL (1.2-4.9); Mean Corpuscular HGB Conc 32.4 g/dl (31.0-36.0); Mean Corpuscular Hemoglobin 32.2 pg (27.0-33.0); Mean Corpuscular Volume 99.3 fL (80.0-98.0); NRBC Abs Auto 0.000 X10*3/uL (0.0-0.012); NRBC Pct Auto 0.0 /100WBC (0.0-0.2); Platelet Count 163 X10*3/uL (160-400); Red Blood Count 4.13 X10*6/uL (4.60-5.80); White Blood Count 4.8 X10*3/uL (4.8-10.8)
[2025-03-16 14:18] LABS: Alanine Aminotransferase 15 U/L (0-40); Albumin Level 4.3 g/dL (3.5-5.0); Alkaline Phosphatase 60 U/L (39-117); Anion Gap 10 (12-20); Aspartate Amino Transferase 19 U/L (5-37); Blood Urea Nitrogen 30 mg/dL (9-16); Calcium 9.3 mg/dL (8.4-10.2); Carbon Dioxide 29 mmol/L (22-29); Chloride 108 mmol/L (96-108); Estimated Glomerular Filt Rate 54; Potassium 4.5 mmol/L (3.3-5.1); Sodium 142 mmol/L (135-145); Total Protein 7.1 g/dL (6.5-8.0)
[2025-03-16 15:16] LABS: Free T4 (Free Thyroxine) 0.85 ng/dL (0.71-1.85)
== END 2025-03-16 10:37 | disposition home or self-care (01) ==
LOC: HO.HMGCLDS 10:36
PROVIDERS: PCP Internal Medicine; Visit Provider Internal Medicine
DX: I10 Essential (primary) hypertension (principal); F39 Unspecified mood [affective] disorder; E66.09 Other obesity due to excess calories; Z68.31 Body mass index [BMI] 31.0-31.9, adult
CPT/HCPCS: 36415; 80053; 83721; 84439; 84443; 85025; 99212

== ENCOUNTER 2025-03-16 10:36 | Outpatient (AMB) | payer MEDICARE, SELFPAY ==
[2025-03-16 10:40] VITALS: BP 112/80; PULSE 58; O2SAT 95; BMI 34.9
--- NOTE | 2025-03-16 10:40 | A.OFFPC_ITS ---
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 Accompanied by: Self / Same As Patient Allergies lithium (LITHIUM) Allergy (Unknown, Verified 12/15/24 12:53) UNKNOWN chlorpromazine (From THORAZINE) Adverse Reaction (Severe, Verified 12/15/24 12:53) PARALYSIS Medication List - Last Reconciled 03/16/25 by Dorothy Phillips MD ascorbate calcium (vitamin C) 500 mg PO DAILY atenolol 25 mg PO DAILY 90 days diphenhydramine HCl (Allergy Relief (diphenhydramine)) 25 mg PO BEDTIME PRN fluticasone propionate 50 mcg/actuation 1 spray intranasal DAILY 30 days [id number] mcg (Centrum Minis Adults 50 Plus) tabs PO ofloxacin 0.3% 5 drps otic (ears) DAILY 7 days quetiapine 25 mg PO BEDTIME Tobacco use date assessed: 03/16/25 Fall risk assessment: No Falls in past year Last assessed Fall Risk: 03/16/25 Dental Screening Dental Screen Date: 03/16/25 Did you have a dental visit in the last 12 months?: No Did you have a dental problem in the last 6 months where you did not have access to dental care?: No Was dental information given to patient?: Patient declined (Has dentures) HPI 6 months f/up HPI Details History of Present Illness The patient is a 70-year-old male presenting for a routine six-month follow-up visit. Mood Disorder and Insomnia: - The patient uses quetiapine (Seroquel) on an as-needed basis for moodiness and sleep disturbance. - He reports taking the medication when he feels grouchy, does not sleep well, or becomes olivares. Hypertension : Bp is well controlled Preventative Care: - The patient's last blood test was in [place]. Problem List - Mood disorder - Insomnia - Hypertension - Preventative care: Laboratory screenin g - Preventative care: Influenza vaccinati on Plan - The patient will undergo a blood test today to check hemoglobin and iron levels. - The patient was advised to get a senio r dose of the influenza vaccine from a pharmacy, such as [facility]. - The patient will continue to take quet iapine (Seroquel) as needed for moodiness and insomnia. - A follow-up appointment for a physical exam is already scheduled for August. - continue atenolol 25 mg Review of Systems - General: No fever no chills - Neurological: No headaches no dizziness - Ear nose throat: No sore throat no hearing difficulty no ear pain - Cardiovascular: No syncope, no chest pain, no palpitations - Gastrointestinal: No nausea vomiting or diarrhea - Endocrine: No polyuria polydipsia no heat intolerance - Genitourinary: No dysuria , no blood in urine Physical Exam General: No acute distress HEENT: No acute findings Neck: Supple Respiratory system: Able to talk in full sentences, no audible wheeze, no shortness of breath Cardiovascular: S1-S2 regular in rate and rhythm, blood pressure 112/80 Gastrointestinal: No pain Extremities: No new findings [employer]: Alert awake oriented x3 motor intact Skin: Normal turgor PFSH Medical History Hypertension Surgical History History of hernia surgery H/O colonoscopy Family History Other Mental health disorder Substance use disorder Social History Housing: Apartment Alcohol intake: current Alcohol intake frequency: holidays/special occasions only Patient Tobacco Use Status: Former Tobacco user Tobacco use type: Cigarette e-Cigarette/Vaping Use: Never Used service: No Current occupational status: unemployed Cognitive needs: No Hearing needs: No Vision needs: Yes Questionnaire Thrive Questionnaire Date Thrive assessed: 09/02/24 I am a: Patient What is your living situation today?: I have a steady place to live Within the past 12 months, did the food you bought not last and you didn't have the money to get more?: Never true Within the past 12 months, did you worry whether your food would run out before you got money to buy more?: Never true Do you have trouble paying for medicines?: No Do you have trouble getting transportation to medical appointments?: No Do you have trouble paying your heating and electricity bill?: No Do you have trouble taking care of your child, family member or friend?: No Do you have trouble with day-to-day activities such as bathing, preparing meals, shopping, managing finances, etc.?: No Are you currently unemployed and looking for a job?: I choose not to answer this question Are you interested in more education?: I choose not to answer this question Please select the resources that you would like help with: None Currently or been in a relationship where the following occur: No concerns reported THRIVE Score: 0 PERI-7 AMB Questionnaire PERI-7 Date PERI - 7 assessed: 09/09/24 Source: Developed by Drs. Duc Zepeda, Nina Oakley, Deandre Brooks and colleagues, with an educational daryl from [employer]. Physical exam (Primary Care) Vital Signs: Last Vital Signs Pulse 58 03/16/25 10:40 BP 112/80 03/16/25 10:40 Pulse Ox 95 03/16/25 10:40 Oxygen Delivery Method Room Air 03/16/25 10:40 BMI result Body Mass Index 34.9 Tobacco/Smoking Status: Tobacco use Status Tobacco use date assessed 03/16/25 03/16/25 10:46 Patient Tobacco Use Status Former Tobacco user 03/16/25 10:40 Tobacco use type Cigarette 03/16/25 10:40 e-Cigarette/Vaping Use Never Used 03/16/25 10:40 Thrive Assessment: Date of Thrive Assessment Date Thrive assessed 09/02/24 03/16/25 10:40 Currently or been in a relationship where the following occur: No concerns reported Coding Level of Care Code Est Pt Level 3 (40611) Complex EM visit Add On G2211 Diagnoses Hypertension, essential I10 Mood disorder F39 Class 1 obesity due to excess calories with serious comorbidity and body mass index (BMI) of 31.0 to 31.9 in adult E66.09; Z68.31 Body mass index: BMI 31.0-31.9 Obesity classification: adult class 1 (BMI 30 - 34.9) Serious obesity comorbidity presence: with serious comorbidity Assessment & Plan Assessment & Plan (1) Hypertension, essential: Code(s): I10 - Essential (primary) hypertension Category: Medical (2) Mood disorder: Code(s): F39 - Unspecified mood [affective] disorder Category: Medical (3) Obesity due to excess calories: Code(s): E66.09 - Other obesity due to excess calories Category: Medical Qualifiers: Body mass index: BMI 31.0-31.9 Obesity classification: adult class 1 (BMI 30 - 34.9) Serious obesity comorbidity presence: with serious comorbidity Qualified Code(s): E66.09 - Other obesity due to excess calories; Z68.31 - Body mass index [BMI] 31.0-31.9, adult Plan Mood Disorder and Insomnia: - The patient uses quetiapine (Seroquel) on an as-needed basis for moodiness and sleep disturbance. - He reports taking the medication when he feels grouchy, does not sleep well, or becomes olivares. Hypertension : Bp is well controlled Preventative Care: - The patient's last blood test was in August. Problem List - Mood disorder - Insomnia - Hypertension - Preventative care: Laboratory screening - Preventative care: Influenza vaccination Plan - The patient will undergo a blood test today to check hemoglobin and iron levels. - The patient was advised to get a senior dose of the influenza vaccine from a pharmacy, such as [facility]. - The patient will continue to take quetiapine (Seroquel) as needed for moodiness and insomnia. - A follow-up appointment for a physical exam is already scheduled for August. - continue atenolol 25 mg Orders: Orders Complete Blood Count Auto Diff Today E66.09 - Other obesity due to excess calories, F39 - Unspecified mood [affective] disorder, I10 - Essential (primary) hypertension, Z68.31 - Body mass index [BMI] 31.0-31.9, adult Comprehensive Met. Panel Today E66.09 - Other obesity due to excess calories, F39 - Unspecified mood [affective] disorder, I10 - Essential (primary) hypertension, Z68.31 - Body mass index [BMI] 31.0-31.9, adult LDL Cholesterol Direct Today E66.09 - Other obesity due to excess calories, F39 - Unspecified mood [affective] disorder, I10 - Essential (primary) hypertension, Z68.31 - Body mass index [BMI] 31.0-31.9, adult TSH reflex Free T4 Today E66.09 - Other obesity due to excess calories, F39 - Unspecified mood [affective] disorder, I10 - Essential (primary) hypertension, Z68.31 - Body mass index [BMI] 31.0-31.9, adult
== END 2025-03-16 11:07 | disposition home or self-care (01) ==
LOC: HO.HMCC 10:36
PROVIDERS: PCP Internal Medicine; Visit Provider Internal Medicine
DX: I10 Essential (primary) hypertension (principal); F39 Unspecified mood [affective] disorder; E66.09 Other obesity due to excess calories; Z68.31 Body mass index [BMI] 31.0-31.9, adult